=== PATIENT | female | born 1945 | race Caucasian/White ===

== ENCOUNTER → 2024-07-11 15:50 | Outpatient (REF) | payer OTHER, SELFPAY | LOC: HWRAD 15:50 | PROVIDERS: ATTENDING PHYSICIAN Nurse Practitioner Family; FAMILY PHYSICIAN Physician Assistant Medical | DX: R06.00 Dyspnea, unspecified (principal) | CPT/HCPCS: 71046 ==

== ENCOUNTER → 2024-07-23 08:32 | Outpatient (REF) | payer OTHER, SELFPAY ==
[2024-07-23 10:34] LABS: Blood Urea Nitrogen 21 mg/dl (7-17)
== END ==
LOC: HWLAB 08:32
PROVIDERS: ATTENDING PHYSICIAN Nurse Practitioner Family; FAMILY PHYSICIAN Physician Assistant Medical
DX: R93.89 Abnormal findings on diagnostic imaging of other specified body structures (principal); R91.8 Other nonspecific abnormal finding of lung field
CPT/HCPCS: 36415; 82565; 84520

== ENCOUNTER → 2024-07-24 07:56 | Outpatient (REF) | payer OTHER, SELFPAY | LOC: HWRAD 07:56 | PROVIDERS: ATTENDING PHYSICIAN Nurse Practitioner Family; FAMILY PHYSICIAN Physician Assistant Medical | DX: R93.89 Abnormal findings on diagnostic imaging of other specified body structures (principal); R91.8 Other nonspecific abnormal finding of lung field | CPT/HCPCS: 71260; Q9967 ==

== ENCOUNTER 2024-12-05 19:48 | Inpatient (IN) | payer OTHER, SELFPAY ==
[2024-12-05 15:31] VITALS: BMI 19.2
[2024-12-05 15:50] VITALS: BP 121/56
--- NOTE | 2024-12-05 15:54 | ED.MUSCINJ ---
HPI-Injury
<Nima Ervin PA-C - Last Filed: 12/05/24 15:55>
General
Chief Complaint: Fall
Time Seen by Provider: 12/05/24 16:38
<Joseph Driver DO - Last Filed: 12/05/24 18:07>
General
Source: patient
Exam Limitations: none
History of Present Illness-Injury
Initial Injury comments:
See MDM
ED Provider Triage
<Nima Ervin PA-C - Last Filed: 12/05/24 15:55>
-
Patient seen by provider in Triage?: Seen in Triage
79-year-old female presents from home after a fall. She states she was feeling weak she tried to stand up and fell. Does not recall hitting her head. She is not anticoagulated. She has a history of COPD and lung cancer. Visiting nurses advised
she come in here. No known injury from the fall.
Patient with vague complaints of weakness at triage but vital signs are stable will check labs, EKG CT of head and chest x-ray as she is complaining of some shortness of breath.
Patient seen by healthcare provider at triage but warrants further assessment
Past History
<Nima Ervin PA-C - Last Filed: 12/05/24 15:55>
Past History
ED Past Medical History: HTN, Hypercholesterolemia and Other (emphysema, Ulcers)
ED Past Surgical History: Appendectomy and Cholecystectomy
Social History
Tobacco: Smoker
Alcohol: Daily ([place] one glass)
Personal:
Living: with family
Phy Exam
<Joseph Driver, - Last Filed: 12/05/24 18:07>
Physical Exam
Physical Exam:
See MDM
Injury Course
<Nima Ervin PA-C - Last Filed: 12/05/24 15:55>
Orders/Labs/Results
Orders:
Orders
12/05/24 15:53
Electrocardiogram (*1) Urgent
Reason for Study: Fatigue / Weakness
CT Head W/o Iv Contrast Urgent
Comment:
Reason For Exam: fall
EKG- Treatment ONCE
CR Chest - 2 Views Urgent
Comment:
Reason For Exam: sob
12/05/24 16:00
Complete Blood Count/With Diff Urgent
Comprehensive Metabolic Panel Urgent
Troponin I Urgent
12/05/24 16:45
Case Management Consult ONCE
Case Management Consult: VN/Home Care
0.9% Sodium Chloride 1000 ml [Nss] 1,000 ml IV BOLUS
12/05/24 16:51
Morphine Sulfate 4 mg IV NOW STA
Abnormal Lab Results
12/05/24
16:00
WBC 12.9 H 10^3/uL
(4.8-10.8)
RBC 4.14 L 10^6/uL
(4.20-5.40)
Hgb 9.9 L g/dL
(12.0-16.0)
Hct 31.0 L %
(37.0-47.0)
MCV 74.9 L fL
(81.0-99.0)
MCH 23.9 L pg
(27.0-31.0)
MCHC 31.9 L g/dL
(33.0-37.0)
RDW 18.8 H %
(11.5-14.5)
Abs Immat Gran (auto) 0.1 H 10^3/uL
(0-0.05)
Absolute Neuts (auto) 12.3 H 10^3/uL
(1.4-6.5)
Absolute Lymphs (auto) 0.2 L 10^3/uL
(1.2-3.4)
Neutrophils % 95.6 H %
(42.2-75.2)
Lymphocytes % 1.6 L %
(20.5-51.1)
Sodium 133 L mmol/L
(135-145)
BUN 32 H mg/dl
(7-17)
Creatinine 1.1 H mg/dL
(0.6-1.0)
Glucose 212 H mg/dl
(70-99)
AST 40 H U/L
(14-36)
12/05/24 16:00
12/05/24 16:00
<Joseph Driver, DO - Last Filed: 12/05/24 18:07>
Orders/Labs/Results
Orders:
Orders
12/05/24 15:53
Electrocardiogram (*1) Urgent
Reason for Study: Fatigue / Weakness
CT Head W/o Iv Contrast Urgent
Comment:
Reason For Exam: fall
EKG- Treatment ONCE
CR Chest - 2 Views Urgent
Comment:
Reason For Exam: sob
12/05/24 16:00
Complete Blood Count/With Diff Urgent
Comprehensive Metabolic Panel Urgent
Troponin I Urgent
12/05/24 16:45
Case Management Consult ONCE
Case Management Consult: VN/Home Care
0.9% Sodium Chloride 1000 ml [Nss] 1,000 ml IV BOLUS
12/05/24 16:51
Morphine Sulfate 4 mg IV NOW STA
Abnormal Lab Results
12/05/24
16:00
WBC 12.9 H 10^3/uL
(4.8-10.8)
RBC 4.14 L 10^6/uL
(4.20-5.40)
Hgb 9.9 L g/dL
(12.0-16.0)
Hct 31.0 L %
(37.0-47.0)
MCV 74.9 L fL
(81.0-99.0)
MCH 23.9 L pg
(27.0-31.0)
MCHC 31.9 L g/dL
(33.0-37.0)
RDW 18.8 H %
(11.5-14.5)
Abs Immat Gran (auto) 0.1 H 10^3/uL
(0-0.05)
Absolute Neuts (auto) 12.3 H 10^3/uL
(1.4-6.5)
Absolute Lymphs (auto) 0.2 L 10^3/uL
(1.2-3.4)
Neutrophils % 95.6 H %
(42.2-75.2)
Lymphocytes % 1.6 L %
(20.5-51.1)
Sodium 133 L mmol/L
(135-145)
BUN 32 H mg/dl
(7-17)
Creatinine 1.1 H mg/dL
(0.6-1.0)
Glucose 212 H mg/dl
(70-99)
AST 40 H U/L
(14-36)
12/05/24 16:00
12/05/24 16:00
<Joseph Driver, DO - Last Filed: 12/05/24 18:07>
MDM/Problems Addressed
Differential Diagnosis Includes:
HPI and MDM Narrative:
79-year-old female presenting for evaluation of a fall. Patient is on home hospice. The hospitalist document imaging manager is at bedside. She believes that the patient does not have the appropriate care at home. Patient does acknowledge this as well. They
revoked hospice to come to the emergency department for evaluation. Blood work was obtained and the CT head was obtained given her fall. Patient found to have multiple areas of metastasis in her brain with 1 area showing concern for petechial
hemorrhage. She is on aspirin. We discussed cessation of aspirin. Will provide pain medicine for her back pain. Patient complains of shortness of breath given her ongoing lung cancer. She is not currently on treatment due to her hospice.
Her living situation is her and her grandson but her grandson has a full-time job so there is much of the day where she is alone.
Will obtain case management consult facilitate visiting nursing
Physical exam
General: Weak, frail, cachectic. Lying in bed comfortably
HEENT: protecting airway. Mildly dry mucous membranes
Neck: appears supple
CV: No evidence of cyanosis. Regular rate and rhythm
Resp: No accessory muscle use. Lungs clear
Abd: Non-distended
Back: No midline spinal tenderness
Extremities: No deformities. No hip tenderness
Neuro: alert
Psych: Normal affect
Skin: Intact
Problems Addressed including Acute and Chronic Conditions affecting care:
1. Intracranial mass and hemorrhage
Acuity: acute
Prognosis: unstable
Details: Appears to be metastasis from her lung cancer. She is hospice and not a surgical candidate. Patient does acknowledge this
2. Generalized weakness
Acuity: acute
Prognosis: stable
Details: Likely in the setting of her ongoing hospice, deconditioning and end-stage cancer. She wants to remain on hospice but wants to do this at home. It is currently unsafe. Will have case management help facilitate visiting nursing
Updates
Hospice at bedside spoke to patient and will admit for inpatient hospice
Differential Diagnosis (but not limited to): Deconditioning, intracranial hemorrhage, dehydration
Testing considered: Urinalysis
Drug therapy (if applicable): OTC meds, please see d/c instruction regarding Rx drugs
Amount and/or Complexity of Data Reviewed
Clinical info obtained from: Patient
External data reviewed: N/A
Labs I independently reviewed (but not limited to): Mild anemia
Radiology: The CT scan was personally and independently reviewed. In addition, official CT report reviewed.
Pulse Ox: not hypoxic
EKG independently reviewed: N/A
Anhydrous Ammonia Production Supervisor: N/A
Critical Care: N/A
Risk of Complication:
Social Determinants of health: Good social support
Discussed with other providers: Hospice, hospitalist
Escalation of Care includes Admit/Obs: Given her terminal disease, will admit for inpatient hospice
Occasional wrong word or 'sound a like' substitutions may have occurred due to the inherent limitations of voice recognition software. Read the chart carefully and recognize, using context, where substitutions have occurred.
<Joseph Driver DO - Last Filed: 12/05/24 18:07>
*Critical Care Note
Total Time (30-74mins, 75-104mins- exclusive of procedures): Not Applicable
ED Attending Note
<Nima Ervin PA-C - Last Filed: 12/05/24 15:55>
-
Portions of this chart may have been created with voice recognition software.� Occasional wrong word or��sound alike� substitutions may have occurred due to the inherent limitations of voice recognition software.
Discharge Plan
Departure
Patient Disposition: Admit
Date of Disposition: 12/05/24
Time of Disposition: 18:07
Admit to: Med/Surg
Presentation/result/management discussed w/ accepting MD/DO: Hospitalist
Discharge Problem:
Metastatic cancer to brain
Prescriptions:
No Action
alprazolam 0.5 MG tablet
0.5 mg PO BIDPRN PRN (Reason: anxiety)
Patient Comments:
12/10/16 Usually only takes at night
metoprolol tartrate 50 MG tablet
50 mg PO BID
albuterol sulfate 1 PUFF HFA aerosol inhaler
1 puff inhalation R Q6HPRN PRN (Reason: sob)
aspirin 81 MG tablet,delayed release (DR/EC)
81 mg PO HS
acetaminophen [Tylenol Arthritis Pain] 650 MG tablet extended release
650 mg PO PRN PRN (Reason: pain)
albuterol sulfate 2.5 MG/3 ML solution for nebulization
2.5 mg inhalation TID
azithromycin 250 MG tablet
250 mg PO DAILY
amlodipine 10 MG tablet
10 mg PO DAILY
ipratropium bromide 0.5 MG/2.5 ML solution
2.5 ml inhalation TID
budesonide-formoterol [Symbicort] 1 PUFF HFA aerosol inhaler
2 puff inhalation R BID
roflumilast [Daliresp] 500 MCG tablet
500 mg PO DAILY
nystatin 5 ML suspension
5 ml PO QID 13 Days Qty: 1 1RF
prednisone 10 MG tablet
10 mg PO .TAPER Qty: 30 0RF
Rx Instructions:
Take 40mg daily x3days, 30mg daily x3days,
20mg daily x3days, 10mg daily x3days.
Referrals:
Cara Myaa PA-C [Family Provider] -
Interventions
Interventions:
*Risk Screen - Suicide Last Done: 12/05/24 15:50
*General Assessment Last Done: 12/05/24 15:50
*Neglect/Abuse Screening Last Done: 12/05/24 15:50
Discharge Date and Time
Print Language: ESTONIAN
[2024-12-05 16:10] LABS: % Basophils 0.2 % (0-2); % Eosinophils 0.1 % (0-6); % Immature Granulocytes 0.4 % (0-0.5); % Lymphocytes 1.6 % (20.5-51.1); % Monocytes 2.1 % (1.7-9.3); % Neutrophils 95.6 % (42.2-75.2); Absolute Immature Granulocytes 0.1 10^3/uL (0-0.05); Absolute Lymphocytes 0.2 10^3/uL (1.2-3.4); Absolute Monocytes 0.3 10^3/uL (0.1-0.6); Absolute Neutrophils 12.3 10^3/uL (1.4-6.5); Hemoglobin 9.9 g/dL (12.0-16.0); Mean Corp Hgb Conc. 31.9 g/dL (33.0-37.0); Mean Corpuscular Hgb 23.9 pg (27.0-31.0); Mean Corpuscular Volume 74.9 fL (81.0-99.0); Mean Platelet Volume 9.4 fL (7.4-10.4); Nucleated Red Blood Cells % 0 %; Platelet Count 264 10^3/uL (130-400); Red Blood Cell Count 4.14 10^6/uL (4.20-5.40); Red Cell Dist. Width 18.8 % (11.5-14.5); White Blood Cell Count 12.9 10^3/uL (4.8-10.8)
[2024-12-05 16:24] LABS: ALT (SGPT) 25 U/L (0-35); AST (SGOT) 40 U/L (14-36); Alkaline Phosphatase 63 U/L (38-126); Blood Urea Nitrogen 32 mg/dl (7-17); Carbon Dioxide 26 mmol/L (22-30); Chloride 98 mmol/L (98-107); Glucose 212 mg/dl (70-99); Potassium 5.1 mmol/L (3.5-5.1); Sodium 133 mmol/L (135-145); Total Bilirubin 0.6 mg/dl (0.2-1.3); Total Protein 6.3 g/dl (6.3-8.2); eGFR 50.48
[2024-12-05 16:36] LABS: Troponin I < 0.012 ng/ml
[2024-12-05 16:39] VITALS: BP 142/66
[2024-12-05 17:00] VITALS: BP 140/57
--- NOTE | 2024-12-05 17:10 | HOSPNOTE ---
Met patient in the ED, long discussion about goals of care, patient wishes to remain on hospice. Provided emotional support.
[2024-12-05] MEDS: MORPHINE SULFATE 4 MG IV (17:12)
[2024-12-05] MEDS: NSS 1000 IV (17:13)
--- NOTE | 2024-12-05 18:09 | HPS.HSE ---
Addendum entered and electronically signed by Melyssa Cedeño DO 12/05/24 22:37:
The patient is seen and examined, and I have discussed the patient with Leatha. I have reviewed her history and physical, and agree with her assessment and plan of care as per below. The patient has suspected lung cancer with metastatic disease,
with multiple falls at home. She has been on home hospice with [facility] since before [place]. She continued to smoke cigarettes, and is not on home oxygen for this reason. She has been hypoxic, with increased anxiety.
VSS, AF at this time
Pt is sitting upright in bed, cachectic
Lungs diffuse wheeze, decreased BS
Abd soft, nt/nd
Neuro no focal deficits
#End-stage COPD
#Suspected metastatic lung cancer
#Hypertension
- continue amlodipine and metoprolol
#Anxiety
#Nicotine dependence
#Hyperlipidemia
Code Status: DNR
Agree with plan of care as per below, continue hospice/ comfort measures, CM consultation to discuss discharge to a facility w hospice care
Original Note:
Family Physician
-
Family Physician: Cara Maya
Chief Complaint
-
fall
History of Present Illness
Patient is a 79-year-old female with past medical history significant for suspected metastatic lung cancer, COPD, hypertension, hyperlipidemia and anxiety who presented to [facility] for evaluation s/p fall at home. Patient reports multiple falls
at home recently 2 today and one where she hit her head. She has been on home hospice with [facility] since before she states. Able to connect with hospice nurse who confirms patient was had chest x-ray and chest CT in
June 2024, with suspected lung cancer and patient declined further workup and elected hospice services on 10/02/2024 with primary diagnosis of end-stage COPD. Nurse reports patient was not on home O2 r/t her continued current smoking. At visits
she would be hypoxic with increased RR to the 40s. At assessment patient SpO2 mid 90s with 2L via NC, presents anxious and non-cooperative in assessment.
Medical History
Past Medical History
Past Medical History: Reports Other
Additional Past Medical History:
metastatic lung cancer
COPD
hypertension
hyperlipidemia
anxiety
Past Surgical History: Reports Other
Additional Past Surgical History:
appendectomy
cholecystectomy
Social History
Tobacco: Smoker (0.5-1 pack per day 'for a very long time' per patient )
Alcohol: Daily (2 drinks of amaretto daily )
Drug: None
Living: With Family
Family History
Family History: Not pertinent
Allergies / Home Medications
Allergies reflects when Allergies were last updated in [employer].
Home Medications with original date entered in [employer]
Allergy/Medication List:
Allergies
Allergy/AdvReac Type Severity Reaction Status Date / Time
amoxicillin Allergy Itching Verified 12/05/24 15:56
bee venom protein (honey bee) Allergy Unknown Verified 12/05/24 15:56
lisinopril Allergy Rash Verified 12/05/24 15:56
Home Medications
acetaminophen 650 mg tablet,extended release (Tylenol Arthritis Pain) 650 mg PO Q8H 12/10/16
albuterol sulfate 90 mcg/actuation aerosol inhaler 2 puff inhalation R Q4HPRN PRN dyspnea 12/10/16
alprazolam 0.5 mg tablet 0.5 mg PO Q8H 12/10/16
aspirin 81 mg tablet,delayed release 81 mg PO DAILY Blood clot prevention/tx 12/10/16
metoprolol tartrate 50 mg tablet 50 mg PO BID Blood pressure 12/10/16
albuterol sulfate 2.5 mg/3 mL (0.083 %) solution for nebulization 2.5 mg inhalation R TID COPD 09/21/21
amlodipine 10 mg tablet 10 mg PO DAILY Blood pressure 09/21/21
azithromycin 250 mg tablet 250 mg PO DAILY COPD 09/21/21
ipratropium bromide 0.02 % solution for inhalation 2.5 ml inhalation R TID COPD 09/21/21
acetaminophen 650 mg rectal suppository 650 mg LA Q6HPRN PRN mild pain/fever >100.4, NPO 12/05/24
bisacodyl 10 mg rectal suppository 10 mg LA DAILYPRN PRN constipation 12/05/24
cyclobenzaprine 10 mg tablet 10 mg PO TIDPRN PRN muscle spasms 12/05/24
fluticasone 250 mcg-salmeterol 50 mcg/dose blistr powdr for inhalation (Advair Diskus) 1 inh inhalation R BID 12/05/24
haloperidol lactate 2 mg/mL oral concentrate 1 mg PO Q6HPRN PRN agitation/hallucinations 12/05/24
hyoscyamine sulfate 0.125 mg sublingual tablet 0.125 mg PO Q4HPRN PRN excessive secretions 12/05/24
lorazepam 0.5 mg tablet 0.5 mg PO Q4HPRN PRN breakthrough anxiety 12/05/24
morphine concentrate 100 mg/5 mL (20 mg/mL) oral solution 5 mg PO Q1HPRN PRN breakthrough dyspnea/pain 12/05/24
morphine concentrate 100 mg/5 mL (20 mg/mL) oral solution 5 mg PO Q6H 12/05/24
prednisone 20 mg tablet 20 mg PO DAILY 12/05/24
prochlorperazine maleate 10 mg tablet 10 mg PO Q6HPRN PRN nausea/vomiting 12/05/24
sennosides 8.6 mg-docusate sodium 50 mg tablet (Senna Plus) 2 tab-cap PO Q48H 12/05/24
sertraline 50 mg tablet 50 mg PO QPM 12/05/24
tramadol 50 mg tablet 50 mg PO Q8H 12/05/24
Review of Systems
-
History Source: Patient
A 12 point ROS was completed and negative except as noted: Yes
Constitutional: Reports No Symptoms
EENT: Reports No Symptoms
Respiratory: Reports Cough and Trouble Breathing (shortness of breath)
Cardiac: Reports No Symptoms
Abdomen/GI: Reports No Symptoms
: Reports No Symptoms
Musculoskeletal: Reports No Symptoms
Skin: Reports Other (bilateral upper extremities bruising )
Neurological: Reports Weakness (repeat falls)
Endocrine: Reports No Symptoms
Hematologic/Lymphatic: Reports No Symptoms
Psych: Reports No Symptoms
Physical Exam
Vital Signs
Vital Signs
Temp Pulse Resp BP Pulse Ox
98.3 F 76 16 121/56 92
12/05/24 15:50 12/05/24 15:50 12/05/24 15:50 12/05/24 15:50 12/05/24 15:50
Physical Exam
General: Well Developed, Respiratory Distress, Poor Appetite, Appears Chronically Ill and Cachectic
HEENT: NormoCephalic, Atraumatic, PERRLA, [place] Conjunctivae, Nose Appears Normal, Ears Appear Normal and Neck Nontender
Respiratory: Clear and Decreased Breath Sounds
Cardiac: S1/S2 and Regular Rhythm; No Murmur, Rub or Gallop
Breast: Deferred by me
GI: Soft, Non Tender, Non Distended and Normal Bowel Sounds; No Organomegaly
Rectal: Deferred by Provider
Genito-urinary: Deferred by me
Musculoskeletal: No Clubbing, No Cyanosis and No Edema
Skin: Warm, IV/Catheter Site and Other (bilateral upper extremities and torso with significant bruising, patient states she just touches something and gets a bruise); No Rash
Neuro: Awake, Alert and Nonfocal/grossly intact
Psych: Anxious (significant anxiety observed and expressed with assessment )
Laboratory Results
-
12/05/24 16:00
12/05/24 16:00
Laboratory Results
Total Bilirubin 0.6 mg/dl (0.2-1.3) 12/05/24 16:00
AST 40 U/L (14-36) H 12/05/24 16:00
ALT 25 U/L (0-35) 12/05/24 16:00
Alkaline Phosphatase 63 U/L (38-126) 12/05/24 16:00
Troponin I < 0.012 ng/ml 12/05/24 16:00
Data Reviewed
-
Diagnostic Radiology: Report Reviewed by me (CXR: Enlarging 13.5 cm left lower lobe pulmonary mass is high level suspicion for pulmonary malignancy)
CT Scan: Report Reviewed by me (Head: There are multiple high density intracranial masses most consistent with intracranial metastasis. A 2 cm right posterior parietal parafalcine lesion contains small volume petechial hemorrhage)
Lab Data: Labs Reviewed by me (WBC 12.9, hgb 99, hct 31.0, neut 95.6, na 133, BUN 32, Creat 1.1, )
Impression/Plan
-
IMPRESSION/PLAN:
#end-stage COPD
patient current everyday smoke with documented hypoxia and tachypnea with home hospice visits
on 2L NC in ED to maintain SpO2 >93%
- admit to in-patient hospice services
- consult case management for hospice
- oxygen PRN to maintain SpO2 >93%
- continue advair, albuterol neb, azithromycin, ipratropium bromide neb, morphine ATC, and prednisone
- add PRN IV morphine
#suspected metastatic lung cancer
CXR (07/11/2024): New left basilar pulmonary mass concerning for lung cancer. Recommend a follow-up chest CT with intravenous contrast.
CXR (12/05/2024): Enlarging 13.5 cm left lower lobe pulmonary mass is high level suspicion for pulmonary malignancy
Chest CT (07/24/2024): Large left lower lobe mass measuring up to 10.4 cm in maximum dimension consistent with primary lung malignancy. Internal areas of necrosis are present. Surrounding airspace opacities and
interlobular septal thickening may represent postobstructive pneumonia, however contiguous and/or lymphatic spread is not excluded.
Left hilar lymphadenopathy consistent with shae metastases. No other metastatic disease in the chest.
Interval enlargement of an infrarenal abdominal aortic aneurysm, only partially visualized on the current examination. Aneurysm sac now measures up to 5.0 cm in AP dimension compared to 4.3 cm
previously in 2021. However, the aneurysm is only partially visualized on the current examination. Dedicated abdominal imaging is recommended for further evaluation.
Chronic/incidental findings as detailed in the body of the report.
Head CT (12/05/2024): There are multiple high density intracranial masses most consistent with intracranial metastasis.
A 2 cm right posterior parietal parafalcine lesion contains small volume petechial hemorrhage
- comfort measures
#hypertension
- continue amlodipine and metoprolol
#anxiety
- continue alprazolam
- add IV lorazepam PRN
#Nicotine dependence
patient continues to smoke 0.5-1 pack per day
- start nicotine Patch
#hyperlipidemia
Code Status: DNR
DVT Prophylaxis: n/a
[2024-12-05 18:12] VITALS: BP 141/52
[2024-12-05] MEDS: ATIVAN 1 MG IV (19:04)
[2024-12-05] MEDS: FLUSH (NSS) 1 FLUSH IV (19:05)
[2024-12-05] MEDS: NSS (PRESERVATIVE FREE) 0.5 ML IV (19:05)
--- NOTE | 2024-12-05 19:17 | HOSPNOTE ---
Patient will be transitioned to inpatient hospice. Provided home medication list to RETREAD SUPERVISOR. Notified admissions of patient being admitted to inpatient hospice. Patients grandson Isidro called into hospice and update provided to him regarding patients
condition and status. I will call him tomorrow with room number and update on patients condition. Isidro was going to update his brother Jerson who was at work but lived with the patient. Emotional support provided. Hospice will see patient daily.
--- NOTE | 2024-12-05 19:24 | PHANOTE ---
[employer] tech(12/05/24)-Patient is on hospice, got medication list from Dr. Driver, who previously contacted hospice for medication list.
[2024-12-05] MEDS: NICODERM TRANSDERMAL 21 MG TRANSDERM (20:20)
[2024-12-05 22:30] VITALS: BP 135/68; BMI 18.5
[2024-12-05] MEDS: MORPHINE SULFATE 2 MG IV (22:39)
[2024-12-05] MEDS: LOPRESSOR 50 MG PO (22:40)
[2024-12-05] MEDS: XANAX 0.5 MG PO (23:16)
[2024-12-06] MEDS: ATROVENT NEBULES INH (00:54)
[2024-12-06] MEDS: ADVAIR HFA 115/21 MCG INHALER INH (00:54)
[2024-12-06] MEDS: VENTOLIN NEBULES INH (00:54)
[2024-12-06] MEDS: MORPHINE SULFATE 2 MG IV ×5 (03:13→21:28)
[2024-12-06] MEDS: VENTOLIN NEBULES 2.5 MG INH ×3 (07:28→20:03)
[2024-12-06] MEDS: ATROVENT NEBULES 0.5 MG INH ×3 (07:29→20:03)
[2024-12-06] MEDS: ADVAIR HFA 115/21 MCG INHALER 2 PUFF INH ×2 (07:29→20:03)
[2024-12-06 08:13] VITALS: BP 121/47
[2024-12-06] MEDS: ZITHROMAX 250 MG PO (09:20)
[2024-12-06] MEDS: ASPIR LOW (ENTERIC COATED) 81 MG PO (09:20)
[2024-12-06] MEDS: DELTASONE 20 MG PO (09:21)
[2024-12-06] MEDS: LOPRESSOR 50 MG PO ×2 (09:21→19:55)
[2024-12-06] MEDS: NORVASC 10 MG PO (09:21)
[2024-12-06] MEDS: XANAX 0.5 MG PO ×3 (09:21→23:47)
[2024-12-06] MEDS: NICODERM TRANSDERMAL 21 MG TRANSDERM (09:22)
--- NOTE | 2024-12-06 09:57 | HOSPNOTE ---
This RN called [facility] are on aging [phone]. Spoke with: Cassandra Ramirez. Provided patient�s name and , home address, contact information for grandsons and grandson's , and details of ongoing concerns and events of 12/05/24, falls,
concerns for patient�s safety, lack of appropriate care and financial concerns. Follow Up: Cassandra will send report to protective service department and they will investigate.
--- NOTE | 2024-12-06 11:06 | W.PN.HOSP.TC ---
Today's Communication/Plan
-
f/w hospice nurse recommendations
c/w morphine, Xanax
Assessment / Plan
Assessment / Plan
Physical Exam
General: Appears Chronically Ill and Cachectic
HEENT: Normocephalic, Atraumatic, PERRLA, [place] Conjunctivae, Nose Appears Normal, Ears Appear Normal and Neck Nontender
Respiratory: Crackles and Decreased Breath Sounds
Cardiac: S1/S2
GI: Soft, Non Tender, Non Distended
Rectal: No bleeding
Genito-urinary: No hematuria
Skin: Warm, IV/Catheter Site and Other (bilateral upper extremities and torso with significant bruising, patient states she just touches something and gets a bruise); No Rash
Neuro: Awake, Alert and followed simple commands
Psych: less anxious.
#End stage chronic hypoxic respiratory failure with severe COPD/ continued tobacco use
patient current everyday smoke with documented hypoxia and tachypnea with home hospice visits
on 2L NC in ED to maintain SpO2 >93%
- admit to in-patient hospice services
- consult case management for hospice
- oxygen PRN to maintain SpO2 >93%
- continue Advair, albuterol neb, azithromycin, ipratropium bromide neb, morphine ATC, and prednisone
- add PRN IV morphine
#Stage IV metastatic lung cancer
CXR (07/11/2024): New left basilar pulmonary mass concerning for lung cancer. Recommend a follow-up chest CT with intravenous contrast.
CXR (12/05/2024): Enlarging 13.5 cm left lower lobe pulmonary mass is high level suspicion for pulmonary malignancy
Chest CT (07/24/2024): Large left lower lobe mass measuring up to 10.4 cm in maximum dimension consistent with primary lung malignancy. Internal areas of necrosis are present. Surrounding airspace opacities and
interlobular septal thickening may represent postobstructive pneumonia, however contiguous and/or lymphatic spread is not excluded.
Left hilar lymphadenopathy consistent with shae metastases. No other metastatic disease in the chest.
Interval enlargement of an infrarenal abdominal aortic aneurysm, only partially visualized on the current examination. Aneurysm sac now measures up to 5.0 cm in AP dimension compared to 4.3 cm
previously in 2021. However, the aneurysm is only partially visualized on the current examination. Dedicated abdominal imaging is recommended for further evaluation.
Chronic/incidental findings as detailed in the body of the report.
Head CT (12/05/2024): There are multiple high density intracranial masses most consistent with intracranial metastasis.
A 2 cm right posterior parietal parafalcine lesion contains small volume petechial hemorrhage
Patient had decided to pursue palliative care/hospice. She was made aware of lung mass and highly suspicious for lung cancer and could be treatable but she made her decision to pursue comfort care and declined biopsy or further treatments. She is
currently on home hospice care
#Essential hypertension
- continue amlodipine and metoprolol
#anxiety
- continue alprazolam
- add IV lorazepam PRN
#Nicotine dependence
patient continues to smoke 0.5-1 pack per day
- start nicotine Patch
#hyperlipidemia
# Leukocytosis, reactive
# Anemia, no history of bleeding. Suspect related to ongoing chronic illness
# Hyponatremia
# Acute kidney injury,
No flank pain
Padilla catheter for comfort care/ retention
Code Status: DNR
DVT Prophylaxis: n/a
Total time spent to see the patient, examine the patient, review data and lab results, discuss treatment plan with patient, hospice nurse, nursing staff around 55 minutes
Anticipated Discharge: 24 - 48 hours
Subjective/Interval History
-
Date of Service: December 06, 2024
She reports feeling better with morphine and Xanax
She denies chest pain
Objective Data
-
Vital Signs:
Vital Signs
Temp Pulse Resp BP Pulse Ox
97.9 F 76 16 121/47 96
12/06/24 08:13 12/06/24 09:21 12/06/24 08:13 12/06/24 09:21 12/06/24 08:13
I&O
12/05/24 12/06/24 12/07/24
06:59 06:59 06:59
Intake Total 280 / 280
Balance 280 / 280
--- NOTE | 2024-12-06 11:25 | PTCARENOTE ---
Patient resting in bed this AM, with productive cough. Was able to take her medications orally, ate all of her breakfast. Patient asking for a cigarette - educated that they are incompatible with the healthcare environment - and that she has a
nicotine patch on. Able to make her needs known, turns well and repositions self in bed as desired. Otherwise appears comfortable.
--- NOTE | 2024-12-06 12:24 | HOSPNOTE ---
Spoke with patient and discussed pain and shortness of breath. At this time the patient denies pain and shortness of breath and has only had the scheduled medications and no PRN doses given. The patient would like to go home, however it is not safe
for the patient to go home at this time due to increased falls, no caregivers, unsafe environment. We have a call into the [facility] to help assist with financials and possible placement. We have also called [facility] to open a file on
unsafe living conditions. Will continue to see patient daily. We are asking that the patient stay until Tuesday in order for us to put a plan in place. We are trying to work with the [facility] to get [address] so the patient can go home
still with hospice care.
--- NOTE | 2024-12-06 13:04 | HOSPNOTE ---
GRANDSON CHELLY CALLED IN AND WE WERE ABLE TO PROVIDE AN UPDATE TO HIM REGARDING PATIENT. REVIEWED THAT PATIENT IS PRESENTLY IN THE HOSPITAL BUT IS STATING THAT SHE WANTS TO GO HOME AND IS NOT WANTING MEDICATIONS PRN FOR SHORTNESS OF BREATH OR PAIN.
REVIEWED THAT THE HOSPITAL CAN NOT KEEP PATIENT PASSED THE WEEKEND. CHELLY REPORTS HE WILL SPEAK TO HIS BROTHER TO SEE WHAT THEY CAN DO TO BRING PATIENT BACK HOME WITH 24H CAREGIVERS. HE STATES HE WILL CALL US BACK BY TOMORROW AFTERNOON. MORE
INFORMATION TO FOLLOW.
[2024-12-06] MEDS: ZOLOFT 50 MG PO (18:03)
[2024-12-06 19:54] VITALS: BP 116/55
[2024-12-07] MEDS: MORPHINE SULFATE 2 MG IV ×4 (03:00→21:06)
[2024-12-07] MEDS: ProAIR HFA INHALER 2 PUFF INH (03:20)
[2024-12-07] MEDS: VENTOLIN NEBULES 2.5 MG INH ×3 (07:22→19:36)
[2024-12-07] MEDS: ATROVENT NEBULES 0.5 MG INH ×3 (07:22→19:36)
[2024-12-07] MEDS: ADVAIR HFA 115/21 MCG INHALER 2 PUFF INH ×2 (07:22→19:36)
[2024-12-07 07:55] VITALS: BP 152/62
[2024-12-07 08:00] VITALS: BP 152/62
[2024-12-07] MEDS: ZITHROMAX 250 MG PO (08:20)
[2024-12-07] MEDS: NICODERM TRANSDERMAL 21 MG TRANSDERM (08:20)
[2024-12-07] MEDS: LOPRESSOR 50 MG PO ×2 (08:20→20:17)
[2024-12-07] MEDS: XANAX 0.5 MG PO ×3 (08:20→23:47)
[2024-12-07] MEDS: DELTASONE 20 MG PO (08:20)
[2024-12-07] MEDS: ASPIR LOW (ENTERIC COATED) 81 MG PO (08:21)
[2024-12-07] MEDS: NORVASC 10 MG PO (08:27)
--- NOTE | 2024-12-07 10:33 | W.PN.HOSP.TC ---
Today's Communication/Plan
-
Not ready for discharge
c/w steroid
morphine & Xanax
Assessment / Plan
Assessment / Plan
Physical Exam
General: Appears Chronically Ill and Cachectic
HEENT: Normocephalic, Atraumatic, PERRLA, [place] Conjunctivae, Nose Appears Normal, Ears Appear Normal and Neck Nontender
Respiratory: Crackles and Decreased Breath Sounds
Cardiac: S1/S2
GI: Soft, Non Tender, Non Distended
Rectal: No bleeding
Genito-urinary: No hematuria
Skin: Warm, IV/Catheter Site and Other (bilateral upper extremities and torso with significant bruising, patient states she just touches something and gets a bruise); No Rash
Neuro: Awake, Alert and followed simple commands
Psych: less anxious.
#End stage chronic hypoxic respiratory failure with severe COPD/ continued tobacco use
patient current everyday smoke with documented hypoxia and tachypnea with home hospice visits
on 2L NC in ED to maintain SpO2 >93%
- admit to in-patient hospice services
- consult case management for hospice
- oxygen PRN to maintain SpO2 >93%
- continue Advair, albuterol neb, azithromycin, ipratropium bromide neb, morphine ATC, and prednisone
- add PRN IV morphine
#Stage IV metastatic lung cancer
CXR (07/11/2024): New left basilar pulmonary mass concerning for lung cancer. Recommend a follow-up chest CT with intravenous contrast.
CXR (12/05/2024): Enlarging 13.5 cm left lower lobe pulmonary mass is high level suspicion for pulmonary malignancy
Chest CT (07/24/2024): Large left lower lobe mass measuring up to 10.4 cm in maximum dimension consistent with primary lung malignancy. Internal areas of necrosis are present. Surrounding airspace opacities and
interlobular septal thickening may represent postobstructive pneumonia, however contiguous and/or lymphatic spread is not excluded.
Left hilar lymphadenopathy consistent with shae metastases. No other metastatic disease in the chest.
Interval enlargement of an infrarenal abdominal aortic aneurysm, only partially visualized on the current examination. Aneurysm sac now measures up to 5.0 cm in AP dimension compared to 4.3 cm
previously in 2021. However, the aneurysm is only partially visualized on the current examination. Dedicated abdominal imaging is recommended for further evaluation.
Chronic/incidental findings as detailed in the body of the report.
Head CT (12/05/2024): There are multiple high density intracranial masses most consistent with intracranial metastasis.
A 2 cm right posterior parietal parafalcine lesion contains small volume petechial hemorrhage
Patient had decided to pursue palliative care/hospice. She was made aware of lung mass and highly suspicious for lung cancer and could be treatable but she made her decision to pursue comfort care and declined biopsy or further treatments. She is
currently on home hospice care
#Essential hypertension
- continue amlodipine and metoprolol
#anxiety
- continue alprazolam
- add IV lorazepam PRN
#Nicotine dependence
patient continues to smoke 0.5-1 pack per day
- started nicotine Patch
#hyperlipidemia
# Leukocytosis, reactive
# Anemia, no history of bleeding. Suspect related to ongoing chronic illness
# Hyponatremia
# Acute kidney injury,
No flank pain
Padilla catheter for comfort care/ retention
Code Status: DNR
DVT Prophylaxis: n/a
Total time spent to see the patient, examine the patient, review data and lab results, discuss treatment plan with patient, her grandson, nursing staff around 55 minutes
Anticipated Discharge: > 48 hours
Subjective/Interval History
-
Date of Service: December 07, 2024
less sob
Objective Data
-
Vital Signs:
Vital Signs
Temp Pulse Resp BP Pulse Ox
98.2 F 86 17 152/62 94
12/07/24 08:00 12/07/24 08:00 12/07/24 08:00 12/07/24 08:27 12/07/24 08:00
I&O
12/06/24 12/07/24 12/08/24
06:59 06:59 06:59
Intake Total 280 / 280 940 / 940
Balance 280 / 280 940 / 940
--- NOTE | 2024-12-07 13:15 | CM ---
Patient chart reviewed-patient sleeping
CM consult completed.
Patient was at home on hospice since before [place] for End stage COPD, suspected lung Ca with metastatic disease.
Patient smokes, no home 02
Per hospice note patient was not safe at home d/t increased falls, no caregivers, called in to [facility]
Lives with grandson in an apartment who works.
CM tried calling grandjanet Vora to follow up on 24 hr caregivers
--- NOTE | 2024-12-07 15:08 | HOSPNOTE ---
Patient resting comfortably, required one PRN dose of morphine last evening. The patient will remain here through the weekend and then there will need to be help in place at home for patient, grandson is aware of plan. I encouraged patient to
utilize medications if feeling any pain or shortness of breath. Patient continues to be GIP for pain management requiring IV morphine. Will see patient daily.
[2024-12-07] MEDS: ZOLOFT 50 MG PO (17:35)
[2024-12-07] MEDS: ATIVAN 1 MG IV ×2 (17:52→22:34)
[2024-12-07] MEDS: NSS (PRESERVATIVE FREE) 0.5 ML IV (17:52)
[2024-12-07 23:26] VITALS: BP 131/51
[2024-12-07] MEDS: TYLENOL 650 MG PO (23:47)
[2024-12-08] MEDS: MORPHINE SULFATE 2 MG IV ×4 (04:09→21:31)
[2024-12-08] MEDS: ProAIR HFA INHALER 2 PUFF INH (04:12)
[2024-12-08 07:10] VITALS: BP 126/49
[2024-12-08] MEDS: ATROVENT NEBULES 0.5 MG INH ×3 (07:26→18:16)
[2024-12-08] MEDS: ADVAIR HFA 115/21 MCG INHALER 2 PUFF INH ×2 (07:26→18:16)
[2024-12-08] MEDS: VENTOLIN NEBULES 2.5 MG INH ×3 (07:26→18:17)
[2024-12-08] MEDS: ASPIR LOW (ENTERIC COATED) 81 MG PO (08:07)
[2024-12-08] MEDS: LOPRESSOR 50 MG PO ×2 (08:07→21:31)
[2024-12-08] MEDS: XANAX 0.5 MG PO ×3 (08:07→23:23)
[2024-12-08] MEDS: DELTASONE 20 MG PO (08:07)
[2024-12-08] MEDS: NORVASC 10 MG PO (08:08)
[2024-12-08] MEDS: NICODERM TRANSDERMAL 21 MG TRANSDERM (08:08)
[2024-12-08] MEDS: ZITHROMAX 250 MG PO (08:08)
--- NOTE | 2024-12-08 08:57 | HOSPNOTE ---
SN recieved patient sleeping in bed, patient minimally responsive to SN verbalization and gentle touch. Patient briefly opens eyes to respond to SN with yes or no answers. Patient does not recognize SN during visit. Patient breathing is labored, RR
16 patient pox on O2 97%. Patient has some moaning during movement. Patient abdomen soft, non tender active bowel sounds noted. Emotional support provided. SN coordinated with facility SN, no concerns at this time. Facility SN stated patient was up
through out the night restless. Reinforced to call office with any questions or concerns, expresses understanding. Patient has not required any PRN medicaitons in the last 24hrs. Patient continues with scheduled medications to manage pain and
anxiety. Patient continues to be inpatient appropriate for management of pain and shortness of breath. Discharge planning still continues.
--- NOTE | 2024-12-08 11:10 | W.PN.HOSP.TC ---
Today's Communication/Plan
-
c/w comfort care
f/w hospice nurse recommendations
Assessment / Plan
Assessment / Plan
Physical Exam
General: Appears Chronically Ill and Cachectic
HEENT: Normocephalic, Atraumatic, PERRLA, [place] Conjunctivae, Nose Appears Normal, Ears Appear Normal and Neck Nontender
Respiratory: Crackles and Decreased Breath Sounds
Cardiac: S1/S2
GI: Soft, Non Tender, Non Distended
Rectal: No bleeding
Genito-urinary: No hematuria
Skin: Warm, IV/Catheter Site and Other (bilateral upper extremities and torso with significant bruising, patient states she just touches something and gets a bruise); No Rash
Neuro: Awake, Alert and followed simple commands
Psych: less anxious.
#End stage chronic hypoxic respiratory failure with severe COPD/ continued tobacco use
patient current everyday smoke with documented hypoxia and tachypnea with home hospice visits
on 2L NC in ED to maintain SpO2 >93%
- admit to in-patient hospice services
- consult case management for hospice
- oxygen PRN to maintain SpO2 >93%
- continue Advair, albuterol neb, azithromycin, ipratropium bromide neb, morphine ATC, and prednisone
- add PRN IV morphine
#Stage IV metastatic lung cancer
CXR (07/11/2024): New left basilar pulmonary mass concerning for lung cancer. Recommend a follow-up chest CT with intravenous contrast.
CXR (12/05/2024): Enlarging 13.5 cm left lower lobe pulmonary mass is high level suspicion for pulmonary malignancy
Chest CT (07/24/2024): Large left lower lobe mass measuring up to 10.4 cm in maximum dimension consistent with primary lung malignancy. Internal areas of necrosis are present. Surrounding airspace opacities and
interlobular septal thickening may represent postobstructive pneumonia, however contiguous and/or lymphatic spread is not excluded.
Left hilar lymphadenopathy consistent with shae metastases. No other metastatic disease in the chest.
Interval enlargement of an infrarenal abdominal aortic aneurysm, only partially visualized on the current examination. Aneurysm sac now measures up to 5.0 cm in AP dimension compared to 4.3 cm
previously in 2021. However, the aneurysm is only partially visualized on the current examination. Dedicated abdominal imaging is recommended for further evaluation.
Chronic/incidental findings as detailed in the body of the report.
Head CT (12/05/2024): There are multiple high density intracranial masses most consistent with intracranial metastasis.
A 2 cm right posterior parietal parafalcine lesion contains small volume petechial hemorrhage
Patient had decided to pursue palliative care/hospice. She was made aware of lung mass and highly suspicious for lung cancer and could be treatable but she made her decision to pursue comfort care and declined biopsy or further treatments. She is
currently on home hospice care
#Essential hypertension
- continue amlodipine and metoprolol
#anxiety
- continue alprazolam
- add IV lorazepam PRN
#Nicotine dependence
patient continues to smoke 0.5-1 pack per day
- started nicotine Patch
#hyperlipidemia
# Leukocytosis, reactive
# Anemia, no history of bleeding. Suspect related to ongoing chronic illness
# Hyponatremia
# Acute kidney injury,
No flank pain
Padilla catheter for comfort care/ retention
Code Status: DNR
DVT Prophylaxis: n/a
Total time spent to see the patient, examine the patient, review data and lab results, discuss treatment plan with patient, nursing staff around 45 minutes
Anticipated Discharge: 24 - 48 hours
Subjective/Interval History
-
Date of Service: December 08, 2024
No chest pain
on Nebulizer
Objective Data
-
Vital Signs:
Vital Signs
Temp Pulse Resp BP Pulse Ox
98.1 F 76 18 126/49 96
12/08/24 07:10 12/08/24 08:07 12/08/24 07:29 12/08/24 08:07 12/08/24 07:29
I&O
12/07/24 12/08/24 12/09/24
06:59 06:59 06:59
Intake Total 940 / 940 840 / 840
Balance 940 / 940 840 / 840
[2024-12-08] MEDS: ZOLOFT PO (17:35)
[2024-12-08 23:12] VITALS: BP 104/53
[2024-12-09] MEDS: MORPHINE SULFATE 2 MG IV ×6 (04:28→23:52)
[2024-12-09 07:10] VITALS: BP 110/41
[2024-12-09] MEDS: ADVAIR HFA 115/21 MCG INHALER 2 PUFF INH ×2 (07:37→19:41)
[2024-12-09] MEDS: ATROVENT NEBULES 0.5 MG INH ×3 (07:37→19:41)
[2024-12-09] MEDS: VENTOLIN NEBULES 2.5 MG INH ×3 (07:37→19:41)
[2024-12-09] MEDS: NICODERM TRANSDERMAL 21 MG TRANSDERM (08:49)
[2024-12-09] MEDS: ASPIR LOW (ENTERIC COATED) 81 MG PO (08:49)
[2024-12-09] MEDS: NORVASC 10 MG PO (08:49)
[2024-12-09] MEDS: LOPRESSOR 50 MG PO ×2 (08:49→19:58)
[2024-12-09] MEDS: DELTASONE 20 MG PO (08:49)
[2024-12-09] MEDS: XANAX 0.5 MG PO ×2 (08:49→19:58)
[2024-12-09] MEDS: ZITHROMAX 250 MG PO (08:49)
--- NOTE | 2024-12-09 09:28 | HOSPNOTE ---
Patient assessed laying in bed, intermittently falls asleep throughout this assessment. Denies pain and no nonverbal signs of anxiety noted. Nonverbal signs of dyspnea noted and patient reports feeling dyspneic. Scheduled morphine dose to be
administered pako. Patient eating during this visit, consumed 25% of breakfast. Informal conference with facility RN Yomaira, she reports that the grandson has been calling and asking what the plan for the patient is. Discussed with Massiel Costa
structures engineer weekend coordinator, plan is if patient still wants to go home family must have 24/7 paid caregivers in the home before the patient can return. This SN attempted to call the grandson - spoke with Isidro regarding plan for home. He stated
that he and his have 'put out feelers' to different places in the area and to see how much it would cost, and whether they could even do it. He stated that he would have an answer by tuesday or tuesday. Reinforced patient will need 24/[address] if she wishes to return home. Patient remains GIP at this time for dyspnea management, discharge planning continues
--- NOTE | 2024-12-09 10:19 | W.PN.HOSP.TC ---
Today's Communication/Plan
-
Taper prednisone
dc planning per pillowcase maker and hospice
Assessment / Plan
Assessment / Plan
Physical Exam
General: Appears Chronically Ill and Cachectic
HEENT: Normocephalic, Atraumatic, PERRLA, [place] Conjunctivae, Nose Appears Normal, Ears Appear Normal and Neck Nontender
Respiratory: Crackles and Decreased Breath Sounds
Cardiac: S1/S2
GI: Soft, Non Tender, Non Distended
Rectal: No bleeding
Genito-urinary: No hematuria
Skin: Warm, IV/Catheter Site and Other (bilateral upper extremities and torso with significant bruising, patient states she just touches something and gets a bruise); No Rash
Neuro: Awake, Alert and followed simple commands
Psych: less anxious.
#End stage chronic hypoxic respiratory failure with severe COPD/ continued tobacco use
patient current everyday smoke with documented hypoxia and tachypnea with home hospice visits
on 2L NC in ED to maintain SpO2 >93%
- admit to in-patient hospice services
- consult case management for hospice
- oxygen PRN to maintain SpO2 >93%
- continue Advair, albuterol neb, azithromycin, ipratropium bromide neb, morphine ATC, and prednisone
- add PRN IV morphine
#Stage IV metastatic lung cancer
CXR (07/11/2024): New left basilar pulmonary mass concerning for lung cancer. Recommend a follow-up chest CT with intravenous contrast.
CXR (12/05/2024): Enlarging 13.5 cm left lower lobe pulmonary mass is high level suspicion for pulmonary malignancy
Chest CT (07/24/2024): Large left lower lobe mass measuring up to 10.4 cm in maximum dimension consistent with primary lung malignancy. Internal areas of necrosis are present. Surrounding airspace opacities and
interlobular septal thickening may represent postobstructive pneumonia, however contiguous and/or lymphatic spread is not excluded.
Left hilar lymphadenopathy consistent with shae metastases. No other metastatic disease in the chest.
Interval enlargement of an infrarenal abdominal aortic aneurysm, only partially visualized on the current examination. Aneurysm sac now measures up to 5.0 cm in AP dimension compared to 4.3 cm
previously in 2021. However, the aneurysm is only partially visualized on the current examination. Dedicated abdominal imaging is recommended for further evaluation.
Chronic/incidental findings as detailed in the body of the report.
Head CT (12/05/2024): There are multiple high density intracranial masses most consistent with intracranial metastasis.
A 2 cm right posterior parietal parafalcine lesion contains small volume petechial hemorrhage
Patient had decided to pursue palliative care/hospice. She was made aware of lung mass and highly suspicious for lung cancer and could be treatable but she made her decision to pursue comfort care and declined biopsy or further treatments. She is
currently on home hospice care
#Essential hypertension
- continue amlodipine and metoprolol
#anxiety
- continue alprazolam
- add IV lorazepam PRN
#Nicotine dependence
patient continues to smoke 0.5-1 pack per day
- started nicotine Patch
#hyperlipidemia
# Leukocytosis, reactive
# Anemia, no history of bleeding. Suspect related to ongoing chronic illness
# Hyponatremia
# Acute kidney injury,
No flank pain
Padilla catheter for comfort care/ retention
Code Status: DNR
DVT Prophylaxis: n/a
Total time spent to see the patient, examine the patient, review data and lab results, discuss treatment plan with patient, nursing staff around 45 minutes
Anticipated Discharge: Within 24 hours
Subjective/Interval History
-
Date of Service: December 09, 2024
No chest pain
No sob
No fevers
Objective Data
-
Vital Signs:
Vital Signs
Temp Pulse Resp BP Pulse Ox
98.7 F 72 18 110/41 98
12/09/24 07:10 12/09/24 07:10 12/09/24 07:10 12/09/24 07:10 12/09/24 07:10
I&O
12/08/24 12/09/24 12/10/24
06:59 06:59 06:59
Intake Total 840 / 840 420 / 420
Balance 840 / 840 420 / 420
[2024-12-09] MEDS: ATIVAN 1 MG IV (15:12)
--- NOTE | 2024-12-09 15:43 | CHAP ---
Visited Georgette at 1:45pm. She was sleeping lightly - responded to hearing her name. 'Better,' she said, when asked how she was feeling. Emotional and spiritual support provided.
[2024-12-09] MEDS: ZOLOFT 50 MG PO (17:25)
--- NOTE | 2024-12-09 18:46 | PTCARENOTE ---
pt continues on hospice care , Morphine scheduled given and a PRN dose for Dyspnea, pt SOB with slight movements when attempting out of bed, poor appetite, more thirsty then hungry. Karley visited Tuesday, would like update from Hospice about
plan to return home. Steve farwarded to Hospice nurse.
[2024-12-09 19:56] VITALS: BP 132/59
[2024-12-10] MEDS: ATIVAN 1 MG IV ×2 (03:49→12:19)
[2024-12-10] MEDS: NSS (PRESERVATIVE FREE) 0.5 ML IV ×2 (03:49→12:19)
[2024-12-10] MEDS: MORPHINE SULFATE 2 MG IV ×5 (05:12→23:43)
[2024-12-10] MEDS: ProAIR HFA INHALER 2 PUFF INH ×2 (05:29→17:23)
[2024-12-10 07:15] VITALS: BP 134/66
[2024-12-10] MEDS: VENTOLIN NEBULES 2.5 MG INH ×3 (07:30→20:01)
[2024-12-10] MEDS: ATROVENT NEBULES 0.5 MG INH ×3 (07:30→20:01)
[2024-12-10] MEDS: ADVAIR HFA 115/21 MCG INHALER 2 PUFF INH ×2 (07:30→20:01)
[2024-12-10] MEDS: XANAX 0.5 MG PO ×2 (07:53→20:22)
[2024-12-10] MEDS: NICODERM TRANSDERMAL 21 MG TRANSDERM (07:53)
[2024-12-10] MEDS: ASPIR LOW (ENTERIC COATED) 81 MG PO (07:53)
[2024-12-10] MEDS: ZITHROMAX 250 MG PO (07:54)
[2024-12-10] MEDS: DELTASONE 10 MG PO (07:54)
[2024-12-10] MEDS: LOPRESSOR 50 MG PO ×2 (08:00→20:23)
[2024-12-10] MEDS: NORVASC 10 MG PO (08:00)
--- NOTE | 2024-12-10 10:03 | W.PN.HOSP.TC ---
Today's Communication/Plan
-
discharge planning per case aide
Assessment / Plan
Assessment / Plan
Physical Exam
General: Appears Chronically Ill and Cachectic
HEENT: Normocephalic, Atraumatic, PERRLA, [place] Conjunctivae, Nose Appears Normal, Ears Appear Normal and Neck Nontender
Respiratory: Crackles and Decreased Breath Sounds
Cardiac: S1/S2
GI: Soft, Non Tender, Non Distended
Rectal: No bleeding
Genito-urinary: No hematuria
Skin: Warm, IV/Catheter Site and Other (bilateral upper extremities and torso with significant bruising, patient states she just touches something and gets a bruise); No Rash
Neuro: Awake, Alert and followed simple commands
Psych: less anxious.
#End stage chronic hypoxic respiratory failure with severe COPD/ continued tobacco use
patient current everyday smoke with documented hypoxia and tachypnea with home hospice visits
on 2L NC in ED to maintain SpO2 >93%
- admit to in-patient hospice services
- consult case management for hospice
- oxygen PRN to maintain SpO2 >93%
- continue Advair, albuterol neb, azithromycin, ipratropium bromide neb, morphine ATC, and prednisone
- add PRN IV morphine
#Stage IV metastatic lung cancer
CXR (07/11/2024): New left basilar pulmonary mass concerning for lung cancer. Recommend a follow-up chest CT with intravenous contrast.
CXR (12/05/2024): Enlarging 13.5 cm left lower lobe pulmonary mass is high level suspicion for pulmonary malignancy
Chest CT (07/24/2024): Large left lower lobe mass measuring up to 10.4 cm in maximum dimension consistent with primary lung malignancy. Internal areas of necrosis are present. Surrounding airspace opacities and
interlobular septal thickening may represent postobstructive pneumonia, however contiguous and/or lymphatic spread is not excluded.
Left hilar lymphadenopathy consistent with shae metastases. No other metastatic disease in the chest.
Interval enlargement of an infrarenal abdominal aortic aneurysm, only partially visualized on the current examination. Aneurysm sac now measures up to 5.0 cm in AP dimension compared to 4.3 cm
previously in 2021. However, the aneurysm is only partially visualized on the current examination. Dedicated abdominal imaging is recommended for further evaluation.
Chronic/incidental findings as detailed in the body of the report.
Head CT (12/05/2024): There are multiple high density intracranial masses most consistent with intracranial metastasis.
A 2 cm right posterior parietal parafalcine lesion contains small volume petechial hemorrhage
Patient had decided to pursue palliative care/hospice. She was made aware of lung mass and highly suspicious for lung cancer and could be treatable but she made her decision to pursue comfort care and declined biopsy or further treatments. She is
currently on home hospice care
#Essential hypertension
- continue amlodipine and metoprolol
#anxiety
- continue alprazolam
- add IV lorazepam PRN
#Nicotine dependence
patient continues to smoke 0.5-1 pack per day
- started nicotine Patch
#hyperlipidemia
# Leukocytosis, reactive
# Anemia, no history of bleeding. Suspect related to ongoing chronic illness
# Hyponatremia
# Acute kidney injury,
No flank pain
Padilla catheter for comfort care/ retention
Code Status: DNR
DVT Prophylaxis: n/a
Total time spent to see the patient, examine the patient, review data and lab results, discuss treatment plan with patient, nursing staff around 45 minutes
Anticipated Discharge: Within 24 hours
Subjective/Interval History
-
Date of Service: December 10, 2024
she feels better
No chest pain
Objective Data
-
Vital Signs:
Vital Signs
Temp Pulse Resp BP Pulse Ox
98.6 F 84 16 148/70 97
12/10/24 07:15 12/10/24 08:00 12/10/24 07:33 12/10/24 08:00 12/10/24 10:01
I&O
12/09/24 12/10/24 12/11/24
06:59 06:59 06:59
Intake Total 420 / 420 240 / 240
Balance 420 / 420 240 / 240
--- NOTE | 2024-12-10 12:25 | PTCARENOTE ---
pt jumping out of bed, agitated and restless. pt washed by this nurse and chelsey from hospice. pt [id number]. [place] and adamately wants to leave. pt given prn ativan and morphine. see MAR for proper documentation.
--- NOTE | 2024-12-10 13:44 | HOSPNOTE ---
Patient was washed and repositioned. Patient appears uncomfortable even though patient denies feeling short of breath. Patient did agree to a PRN dose of morphine. Patient was pulling at the IV and does seen agitated. We were able to reposition and
will medicate. Oxygen was removed by patient and she is refusing to wear, told nurse to medicate for shortness of breath since the oxygen is causing more agitation. Patient will be seen daily, a call was placed to [facility] who is helping the
grandson get caregivers in place. Will continue to follow.
[2024-12-10] MEDS: ZOLOFT 50 MG PO (20:22)
[2024-12-10 20:25] VITALS: BP 123/47
[2024-12-11] MEDS: ATIVAN 1 MG IV (00:11)
--- NOTE | 2024-12-11 01:29 | PTCARENOTE ---
Patient continues to be restless and agitated at times, she is easily redirected in the bed with out difficulty, medications given as ordered, as well as a dose of prn Ativan to help relax/sleep. appetite remains poor, patient anxious to get back
home. O2 placed back on patient who at this time is keeping it on.
[2024-12-11] MEDS: ADVAIR HFA 115/21 MCG INHALER 2 PUFF INH ×2 (07:34→19:39)
[2024-12-11] MEDS: VENTOLIN NEBULES 2.5 MG INH ×3 (07:34→19:38)
[2024-12-11] MEDS: ATROVENT NEBULES 0.5 MG INH ×3 (07:34→19:38)
[2024-12-11 07:36] VITALS: BP 124/53
[2024-12-11] MEDS: NORVASC 10 MG PO (08:25)
[2024-12-11] MEDS: NICODERM TRANSDERMAL 21 MG TRANSDERM (08:25)
[2024-12-11] MEDS: XANAX 0.5 MG PO ×2 (08:25→21:08)
[2024-12-11] MEDS: ASPIR LOW (ENTERIC COATED) 81 MG PO (08:25)
[2024-12-11] MEDS: ZITHROMAX 250 MG PO (08:25)
[2024-12-11] MEDS: DELTASONE 10 MG PO (08:25)
[2024-12-11] MEDS: LOPRESSOR 50 MG PO ×2 (08:26→21:08)
[2024-12-11] MEDS: MORPHINE SULFATE 2 MG IV ×3 (08:26→21:09)
--- NOTE | 2024-12-11 10:40 | W.PN.HOSP.TC ---
Today's Communication/Plan
-
c/w hospice care
Assessment / Plan
Assessment / Plan
Physical Exam
General: Appears Chronically Ill and Cachectic
HEENT: Normocephalic, Atraumatic, PERRLA, [place] Conjunctivae, Nose Appears Normal, Ears Appear Normal and Neck Nontender
Respiratory: Crackles and Decreased Breath Sounds
Cardiac: S1/S2
GI: Soft, Non Tender, Non Distended
Rectal: No bleeding
Genito-urinary: No hematuria
Skin: Warm, IV/Catheter Site and Other (bilateral upper extremities and torso with significant bruising, patient states she just touches something and gets a bruise); No Rash
Neuro: Awake, Alert and followed simple commands
Psych: less anxious.
#End stage chronic hypoxic respiratory failure with severe COPD/ continued tobacco use
patient current everyday smoke with documented hypoxia and tachypnea with home hospice visits
on 2L NC in ED to maintain SpO2 >93%
- admit to in-patient hospice services
- consult case management for hospice
- oxygen PRN to maintain SpO2 >93%
- continue Advair, albuterol neb, azithromycin, ipratropium bromide neb, morphine ATC, and prednisone
- add PRN IV morphine
#Stage IV metastatic lung cancer
Patient had decided to pursue palliative care/hospice. She was made aware of lung mass and highly suspicious for lung cancer and could be treatable but she made her decision to pursue comfort care and declined biopsy or further treatments. She is
currently on home hospice care
#Essential hypertension
- continue amlodipine and metoprolol
#anxiety
- continue alprazolam
- add IV lorazepam PRN
#Nicotine dependence
patient continues to smoke 0.5-1 pack per day
- started nicotine Patch
#hyperlipidemia
# Leukocytosis, reactive
# Anemia, no history of bleeding. Suspect related to ongoing chronic illness
# Hyponatremia
# Acute kidney injury,
No flank pain
Padilla catheter for comfort care/ retention
Code Status: DNR
DVT Prophylaxis: n/a
Total time spent to see the patient, examine the patient, review data and lab results, discuss treatment plan with patient, nursing staff around 45 minutes
Anticipated Discharge: 24 - 48 hours
Subjective/Interval History
-
Date of Service: December 11, 2024
Objective Data
-
Vital Signs:
Vital Signs
Temp Pulse Resp BP Pulse Ox
98.0 F 78 18 124/53 95
12/11/24 07:36 12/11/24 07:37 12/11/24 07:37 12/11/24 08:26 12/11/24 07:37
I&O
12/10/24 12/11/24 12/12/24
06:59 06:59 06:59
Intake Total 240 / 240 180 / 180
Balance 240 / 240 180 / 180
--- NOTE | 2024-12-11 14:12 | HOSPNOTE ---
Patient was sleeping during my visit but appeared comfortable. Patient removed oxygen which is fine and patient appears comfortable. Patient does get extremely agitated and does need to be medicated. Patient does have scheduled morphine but does
require PRN doses. The grandson is supposed to get back to us tomorrow and is setting up caregivers for the patient to be able to go home. [facility] is involved and care needs to be in place. Patient will be seen daily.
--- NOTE | 2024-12-11 16:26 | CM ---
Patient remains inpatient hospice.
Grandson attempting to arrange for caregivers in the home.
[facility] contacted by hospice.
PLAN: to be determined based on grandson's ability to obtain caregivers in the home.
[2024-12-11] MEDS: ZOLOFT 50 MG PO (18:04)
--- NOTE | 2024-12-11 18:11 | PTCARENOTE ---
pt comfortable most of this shift. woke up for this nurse at 1655. pt x1 assist to commode for large bm. this nurse wrote large list of foods that patient does like to eat. pt remains on bed alarm.
[2024-12-11 23:14] VITALS: BP 142/59
[2024-12-12] MEDS: MORPHINE SULFATE 2 MG IV ×4 (00:52→23:56)
[2024-12-12 07:15] VITALS: BP 130/57
[2024-12-12] MEDS: ATROVENT NEBULES 0.5 MG INH ×3 (07:50→20:08)
[2024-12-12] MEDS: ADVAIR HFA 115/21 MCG INHALER 2 PUFF INH ×2 (07:50→20:08)
[2024-12-12] MEDS: VENTOLIN NEBULES 2.5 MG INH ×3 (07:50→20:09)
[2024-12-12] MEDS: ZITHROMAX 250 MG PO (09:11)
[2024-12-12] MEDS: XANAX 0.5 MG PO ×2 (09:11→20:53)
[2024-12-12] MEDS: ASPIR LOW (ENTERIC COATED) 81 MG PO (09:11)
[2024-12-12] MEDS: DELTASONE 10 MG PO (09:11)
[2024-12-12] MEDS: LOPRESSOR 50 MG PO ×2 (09:11→20:53)
[2024-12-12] MEDS: NORVASC 10 MG PO (09:12)
[2024-12-12] MEDS: NICODERM TRANSDERMAL 21 MG TRANSDERM (09:13)
--- NOTE | 2024-12-12 10:55 | W.PN.HOSP.TC ---
Today's Communication/Plan
-
c/w comfort care
Assessment / Plan
Assessment / Plan
Physical Exam
General: Appears Chronically Ill and Cachectic
HEENT: Normocephalic, Atraumatic, PERRLA, [place] Conjunctivae, Nose Appears Normal, Ears Appear Normal and Neck Nontender
Respiratory: Crackles and Decreased Breath Sounds
Cardiac: S1/S2
GI: Soft, Non Tender, Non Distended
Rectal: No bleeding
Genito-urinary: No hematuria
Skin: Warm, IV/Catheter Site and Other (bilateral upper extremities and torso with significant bruising, patient states she just touches something and gets a bruise); No Rash
Neuro: Awake, Alert and followed simple commands
Psych: less anxious.
#End stage chronic hypoxic respiratory failure with severe COPD/ continued tobacco use
patient current everyday smoke with documented hypoxia and tachypnea with home hospice visits
on 2L NC in ED to maintain SpO2 >93%
c/w comfort care measures.
- consulted case management/ hospice
Oxygen for comfort
- continue Advair, albuterol neb, azithromycin, ipratropium bromide neb, morphine ATC,
Finished prednisone
- added PRN IV morphine
#Stage IV metastatic lung cancer
Patient had decided to pursue palliative care/hospice. She was made aware of lung mass and highly suspicious for lung cancer and could be treatable but she made her decision to pursue comfort care and declined biopsy or further treatments. She is
currently on home hospice care
#Essential hypertension
- continue amlodipine and metoprolol
#anxiety
- continue alprazolam but decreased frequency
- added IV lorazepam PRN agitation.
#Nicotine dependence
patient continues to smoke 0.5-1 pack per day
- started nicotine Patch
#hyperlipidemia
# Leukocytosis, reactive
# Anemia, no history of bleeding. Suspect related to ongoing chronic illness
# Hyponatremia
# Acute kidney injury,
No flank pain
Padilla catheter for comfort care/ retention
Code Status: DNR
DVT Prophylaxis: n/a
Total time spent to see the patient, examine the patient, review data and lab results, discuss treatment plan with patient, nursing staff around 45 minutes
Anticipated Discharge: > 48 hours
Subjective/Interval History
-
Date of Service: December 12, 2024
No chest pain
No sob
No abd pain
Objective Data
-
Vital Signs:
Vital Signs
Temp Pulse Resp BP Pulse Ox
98.5 F 71 14 130/57 93
12/12/24 07:15 12/12/24 09:12 12/12/24 07:54 12/12/24 09:12 12/12/24 10:00
I&O
12/11/24 12/12/24 12/13/24
06:59 06:59 06:59
Intake Total 180 / 180 560 / 560
Balance 180 / 180 560 / 560
--- NOTE | 2024-12-12 11:52 | HOSPNOTE ---
We have reached out to kalyan Felix to get patient home, we have reached out to [facility] to help assist with caregivers. Patient will be seen daily by hospice and continue to manage pain, shortness of breath and anxiety.
--- NOTE | 2024-12-12 14:10 | HOSPNOTE ---
Discharge planning continues. Called [facility] Ferrara. This RN called Mack Stover to discuss safe discharge planning. This RN called [facility] and spoke with Alison in admissions [phone]. Alison states that they have a bed available and explained
admission process. Updated Hospice team and discussed discharge with liabrii Giraldo. Hospice team to discuss [facility] vs. hiring paid home caregivers with patient and grandson(s)
--- NOTE | 2024-12-12 16:36 | HOSPNOTE ---
Spoke with grandson Isidro. He states that he is unsure about the discharge plan. Discussed options of facility placement vs paid caregivers in the home. no paid caregivers have been put in place. He states that he is talking to his brother Jerson about
caregivers and talking to Jerson about if Jerson can take FMLA. He is unsure about facility placement and states he needs to talk with his brother. Isidro offered very little information. Hospice team updated.
[2024-12-12] MEDS: ZOLOFT 50 MG PO (18:03)
[2024-12-12] MEDS: DESENEX/MITRAZOL/ZEASORB 1 APPLIC TOPICAL (20:52)
[2024-12-12 23:36] VITALS: BP 116/47
[2024-12-13] MEDS: ZOFRAN 4 MG IV (05:04)
[2024-12-13 07:10] VITALS: BP 122/52
[2024-12-13] MEDS: VENTOLIN NEBULES 2.5 MG INH ×3 (07:21→19:53)
[2024-12-13] MEDS: ATROVENT NEBULES 0.5 MG INH ×3 (07:21→19:52)
[2024-12-13] MEDS: ADVAIR HFA 115/21 MCG INHALER 2 PUFF INH (07:21)
[2024-12-13] MEDS: MORPHINE SULFATE 2 MG IV ×5 (08:35→20:23)
[2024-12-13] MEDS: NORVASC 10 MG PO (08:35)
[2024-12-13] MEDS: ZITHROMAX 250 MG PO (08:36)
[2024-12-13] MEDS: ASPIR LOW (ENTERIC COATED) 81 MG PO (08:36)
[2024-12-13] MEDS: XANAX 0.5 MG PO ×2 (08:36→20:18)
[2024-12-13] MEDS: LOPRESSOR 50 MG PO ×2 (08:36→20:18)
[2024-12-13] MEDS: NICODERM TRANSDERMAL 21 MG TRANSDERM (08:37)
[2024-12-13] MEDS: DESENEX/MITRAZOL/ZEASORB 1 APPLIC TOPICAL ×2 (08:40→20:19)
--- NOTE | 2024-12-13 09:04 | HOSPNOTE ---
Patient was AAOx3 during my visit. Oxygen in place via NC. Patient calm but does get extremely agitated at times. Patient continues to require scheduled morphine with PRN doses. Patient will be seen daily by Hospice. Patient verbalizes understanding
that she will require more care and states that she is agreeable to discharge to [facility]. [facility] and Hospice team notified. THis RN will call [facility] admissions to discuss next steps. Discharge planning continues.
--- NOTE | 2024-12-13 10:35 | W.PN.HOSP.TC ---
Today's Communication/Plan
-
CW hospice care
Ongoing dispo efforts
Assessment / Plan
Assessment / Plan
#End stage chronic hypoxic respiratory failure with severe COPD/ continued tobacco use
patient current everyday smoke with documented hypoxia and tachypnea with home hospice visits
on 2L NC in ED to maintain SpO2 >93%
c/w comfort care measures.
- consulted case management/ hospice
Oxygen for comfort
- continue Advair, albuterol neb, azithromycin, ipratropium bromide neb, morphine ATC,
Finished prednisone
- added PRN IV morphine
#Stage IV metastatic lung cancer
Patient had decided to pursue palliative care/hospice. She was made aware of lung mass and highly suspicious for lung cancer and could be treatable but she made her decision to pursue comfort care and declined biopsy or further treatments. She is
currently on home hospice care
#Essential hypertension
- continue amlodipine and metoprolol
#anxiety
- continue alprazolam but decreased frequency
- added IV lorazepam PRN agitation.
#Nicotine dependence
patient continues to smoke 0.5-1 pack per day
- started nicotine Patch
#hyperlipidemia
# Leukocytosis, reactive
# Anemia, no history of bleeding. Suspect related to ongoing chronic illness
# Hyponatremia
# Acute kidney injury,
No flank pain
Padilla catheter for comfort care/ retention
Code Status: DNR
DVT Prophylaxis: n/a
Dispo based on grandson ability to obtain caregivers in the home
Continue with inpatient hospice
Anticipated Discharge: Within 24 hours
Subjective/Interval History
-
Date of Service: December 13, 2024
She is alert and oriented to place.
She complains of shortness of breath while resting. She is on oxygen. The no acute respiratory distress noted.
No chest pains.
Objective Data
-
Vital Signs:
Vital Signs
Temp Pulse Resp BP Pulse Ox
98.9 F 72 15 122/52 95
12/13/24 07:10 12/13/24 08:36 12/13/24 07:23 12/13/24 08:36 12/13/24 09:56
I&O
12/12/24 12/13/24 12/14/24
06:59 06:59 06:59
Intake Total 560 / 560 600 / 600
Balance 560 / 560 600 / 600
Review of Systems
-
Constitutional: Denies Fever
EENT: Denies Sore Throat
Abdomen/GI: Denies Abdominal Pain, Nausea or Vomiting
Neuro: Denies Dizzy
Physical Exam
-
General: No Apparent Distress
HEENT: Moist Mucous Membranes
Respiratory: Rhonchi (Few bilaterally) and Non Labored Respirations; Negative Accessory Resp Muscle Use
Cardiac: Regular Rhythm and S1/S2
Neuro: AO x 3
--- NOTE | 2024-12-13 11:31 | HOSPNOTE ---
harvest worker fruit checked in on patient after being informed by hospice PCM Namita that [facility] stated that they have a bed available and that patient was agreeable to go. Upon arrival to patient's room, patient was not wearing her nasal
canula properly as both prongs were not in nostrils which was corrected. Patient was asked who would be able to provide financial information for application for [facility] and patient mentioned maybe her sister but then stated 'I don't know'.
Sister had voiced to hospice at one point that she does not want any involvement or to be contacted by hospice. Update given to hospice care team.
--- NOTE | 2024-12-13 14:48 | HOSPNOTE ---
pan tank worker spoke with Alison in Admissions at [facility] and provided update on situation and Alison voiced that they have a bed available still and provided contact information for Malathi, the Computer Systems Security Analyst, to discuss situation
regarding limited information on finances. field worker spoke with Malathi and informed her that patient has very limited to no support and that patient and family has not been able to provide financial information at this time. Malathi stated that a
Medicaid questionare and release of information would need to be completed and signed with patient in order for patient to be able to transfer to [facility]. field worker has not received documentation via email at this time. Malathi stated that they
do not have a rep that can come from the facility to assist patient with the paperwork requested. Malathi also stated that patient could provide permission to her bank verbally on the phone for banking info to be given to [facility] and to also have
her address changed through the bank to [facility]. field worker called Dena from [facility] [phone] and provided update on situation and what [facility] is requesting. field worker also notified Dena that kalyan Felix was called by social
worker this morning and it went straight to voicetxil with no call back. Dena offered assistance with paperwork if needed and stated she would be willing to come to the hospital if needed to assist. field worker called Hospice [facility] and
provided her with update of above mentioned. Discharge planning continues.
[2024-12-13] MEDS: ZOLOFT 50 MG PO (17:15)
[2024-12-13] MEDS: ADVAIR HFA 115/21 MCG INHALER INH (19:52)
[2024-12-13 23:14] VITALS: BP 124/49
[2024-12-14] MEDS: MORPHINE SULFATE 2 MG IV ×6 (00:57→23:20)
[2024-12-14 07:15] VITALS: BP 140/62
[2024-12-14] MEDS: ATROVENT NEBULES 0.5 MG INH (07:31)
[2024-12-14] MEDS: ADVAIR HFA 115/21 MCG INHALER 2 PUFF INH ×2 (07:31→20:00)
[2024-12-14] MEDS: VENTOLIN NEBULES 2.5 MG INH (07:31)
[2024-12-14] MEDS: ZITHROMAX 250 MG PO (08:13)
[2024-12-14] MEDS: NICODERM TRANSDERMAL 21 MG TRANSDERM (08:13)
[2024-12-14] MEDS: NORVASC PO ×2 (08:13→08:20)
[2024-12-14] MEDS: LOPRESSOR PO ×2 (08:14→08:20)
[2024-12-14] MEDS: ASPIR LOW (ENTERIC COATED) PO ×2 (08:14→08:20)
[2024-12-14] MEDS: XANAX 0.5 MG PO ×2 (08:14→20:06)
[2024-12-14] MEDS: DESENEX/MITRAZOL/ZEASORB 1 APPLIC TOPICAL ×2 (08:14→20:07)
--- NOTE | 2024-12-14 10:39 | HOSPNOTE ---
Hospice [facility] continues to work closely with [facility] and Dena with [facility] to have paperwork and financials completed to see if patient can go to [facility]. Patients grandsons have not been returning hospice phone calls. Hospice will continue to see
the patient daily until placement is in place.
--- NOTE | 2024-12-14 11:34 | PTCARENOTE ---
Pt very lethargic and withdrawn this shift; per hospice entrance attendant this is a change from previous visit. Pt refused breakfast, took xanax and morphine, refused other PO meds.
--- NOTE | 2024-12-14 12:50 | W.PN.HOSP.TC ---
Today's Communication/Plan
-
Continue with hospice measures
Assessment / Plan
Assessment / Plan
#End stage chronic hypoxic respiratory failure with severe COPD/ continued tobacco use
patient current everyday smoke with documented hypoxia and tachypnea with home hospice visits
on 2L NC in ED to maintain SpO2 >93%
c/w comfort care measures.
- consulted case management/ hospice
Oxygen for comfort
- continue Advair, albuterol neb, azithromycin, ipratropium bromide neb, morphine ATC,
Finished prednisone
- added PRN IV morphine
#Stage IV metastatic lung cancer
Patient had decided to pursue palliative care/hospice. She was made aware of lung mass and highly suspicious for lung cancer and could be treatable but she made her decision to pursue comfort care and declined biopsy or further treatments. She is
currently on home hospice care
#Essential hypertension
- continue amlodipine and metoprolol
#anxiety
- continue alprazolam but decreased frequency
- added IV lorazepam PRN agitation.
#Nicotine dependence
patient continues to smoke 0.5-1 pack per day
- on nicotine Patch
Code Status: DNR
DVT Prophylaxis: n/a
Dispo based on grandson ability to obtain caregivers in the home
Continue with inpatient hospice
Anticipated Discharge: > 48 hours
Subjective/Interval History
-
Date of Service: December 14, 2024
Patient had a fever and according to RN patient is withdrawn. Not eating today. Did not take her medications.
Patient is lethargic to me and not forthcoming with conversation. Hospice nursing team at bedside trying to communicate with the patient and get answers regarding her comfort level.
Objective Data
-
Vital Signs:
Vital Signs
Temp Pulse Resp BP Pulse Ox
100.3 F 76 16 140/62 96
12/14/24 07:15 12/14/24 07:35 12/14/24 07:35 12/14/24 07:15 12/14/24 11:32
I&O
12/13/24 12/14/24 12/15/24
06:59 06:59 06:59
Intake Total 600 / 600 540 / 540
Balance 600 / 600 540 / 540
Review of Systems
-
Unable to obtain full review of systems at this time due to: Other (Due to her mentation)
Physical Exam
-
General: No Apparent Distress
Respiratory: Non Labored Respirations; Negative Accessory Resp Muscle Use
Neuro: Awake; Negative Alert
Psych: Calm
--- NOTE | 2024-12-14 13:02 | HOSPNOTE ---
delinquency prevention social worker was informed by hospice SN Inez that patient appears to be transitioning at this time. horticultural worker spoke with Dena from [facility] who was also present in the hospital along with hospice SN Inez about current condition and
checked in on patient who appeared very lethargic and was refusing medication after team expressed patient seemed SOB. Patient could not express the reasoning as to why she was refusing medication. Dena from [facility] agreed that she should stay at the
hospital due to her current condition. horticultural worker spoke with grandsons Jerson and Isidro via phone and informed them that patient appears to be transitioning based on hospice SN assessment this morning and also inquired about arrangements.
Isidro stated that she mentioned about wanting to be cremated and web content & social media manager provided names of a couple of homes with a crematory on site and asked that family notify hospice today about end of life planning. Update of conversation given to
Dena in [facility] and hospice care team.
--- NOTE | 2024-12-14 15:34 | CM ---
Reviewed the chart notes and spoke with director hospice operations. Patient appears to be refusing medication and is becoming lethargic. CM continues to be available to patient/family and is monitoring medical plan for needs at discharge.
Plan: GIP Hospice continues.
--- NOTE | 2024-12-14 15:51 | HOSPNOTE ---
This visit was conducted with Inez Hicks RN and Service Dog Jacobo. This sn went in to see patient, patient appears very lethargic, responds with 1-2 word answers, appears very dyspneic, RR is 24 lung sounds coarse, harsh and labored, mottling
to the bases of the feet. This SN conducted this visit alongside MELANIE Kasper and social services specialist Dena from [facility]. Patient continues to refuse prn administration of morphine but unable to answer why she declines to have it given. Continues on
scheduled comfort medications. No longer eating or drinking as of this am, able to partially take routine medications this AM. Facility RN in agreement that this patient appears to be transitioning. PPS 10% KPS 10%. This SN discussed face to face
with Dr. Knott, Facility RN, telephonic case manager Cortney Olivo, MELANIE Kasper, and [facility] social services specialist Dena, all in agreement and understanding that patient appears to be transitioning and requiring IV medication for symptom management, should remain
GIP. Discussion with hospice team via tigertext reviewing the same thing. All in agreement and understanding. Alongside Morenita Kasper managed to reach the patient's grandsons Jerson and Isidro. Family aware that the patient is transitioning and that
they should come in to see her as soon as possible if they wish to do so. Patient remains GIP for symptom management.
--- NOTE | 2024-12-14 15:57 | CM ---
Patient remains GIP Hospice.
[2024-12-14] MEDS: ZOLOFT 50 MG PO (17:58)
--- NOTE | 2024-12-14 18:05 | PTCARENOTE ---
Pt rang with c/o feeling very short of breath. POX 92 on 2 L, RR 26, increased oxygen to 4L sats 95%, morphine given as ordered for dyspnea
[2024-12-14] MEDS: ATIVAN 1 MG IV ×2 (18:28→22:26)
[2024-12-14] MEDS: NSS (PRESERVATIVE FREE) 0.5 ML IV ×2 (18:28→22:27)
[2024-12-14 19:46] VITALS: BP 133/56
[2024-12-14] MEDS: LOPRESSOR 50 MG PO (20:06)
[2024-12-15] MEDS: MORPHINE SULFATE 2 MG IV ×4 (05:32→20:46)
--- NOTE | 2024-12-15 06:10 | PTCARENOTE ---
Pt medicated with PRN and ramone morphine overnight, also PRN IV ativan given, breathing better, O2 back @ 2L and sating 93-95 %. No c/o SOB.
[2024-12-15 07:10] VITALS: BP 131/48
[2024-12-15] MEDS: ADVAIR HFA 115/21 MCG INHALER 2 PUFF INH (07:29)
[2024-12-15] MEDS: XANAX 0.5 MG PO ×2 (09:08→20:46)
[2024-12-15] MEDS: ZITHROMAX 250 MG PO (09:08)
[2024-12-15] MEDS: NORVASC 10 MG PO (09:08)
[2024-12-15] MEDS: NICODERM TRANSDERMAL 21 MG TRANSDERM (09:08)
[2024-12-15] MEDS: ASPIR LOW (ENTERIC COATED) 81 MG PO (09:08)
[2024-12-15] MEDS: LOPRESSOR 50 MG PO ×2 (09:08→20:46)
[2024-12-15] MEDS: DESENEX/MITRAZOL/ZEASORB 1 APPLIC TOPICAL ×2 (09:24→20:53)
--- NOTE | 2024-12-15 12:37 | W.PN.HOSP.TC ---
Today's Communication/Plan
-
CW hospice level of care
Assessment / Plan
Assessment / Plan
#End stage chronic hypoxic respiratory failure with severe COPD/ continued tobacco use
patient current everyday smoke with documented hypoxia and tachypnea with home hospice visits
on 2L NC in ED to maintain SpO2 >93%
c/w comfort care measures.
- consulted case management/ hospice -following
Oxygen for comfort
- continue Advair, albuterol neb, azithromycin, ipratropium bromide neb, morphine ATC,
Finished prednisone
- added PRN IV morphine
#Stage IV metastatic lung cancer
Patient had decided to pursue palliative care/hospice. She was made aware of lung mass and highly suspicious for lung cancer and could be treatable but she made her decision to pursue comfort care and declined biopsy or further treatments. She is
currently on home hospice care
#Essential hypertension
- continue amlodipine and metoprolol
#anxiety
- continue alprazolam but decreased frequency
- added IV lorazepam PRN agitation.
#Nicotine dependence
patient continues to smoke 0.5-1 pack per day
- on nicotine Patch
Code Status: DNR
DVT Prophylaxis: n/a
cw In patient level of hospice
Anticipated Discharge: 24 - 48 hours
Subjective/Interval History
-
Date of Service: December 15, 2024
On hospice.
Patient a little more alert than yesterday. Not conversive.
Patient was feeling short of breath so got extra dose of morphine this morning. Patient is requiring intermittent parenteral Ativan and morphine for symptom control.
Discussed with RN.
Objective Data
-
Vital Signs:
Vital Signs
Temp Pulse Resp BP Pulse Ox
99.0 F 66 16 131/48 94
12/15/24 07:10 12/15/24 07:33 12/15/24 07:33 12/15/24 07:10 12/15/24 07:33
I&O
12/14/24 12/15/24 12/16/24
06:59 06:59 06:59
Intake Total 540 / 540 360 / 360
Balance 540 / 540 360 / 360
Physical Exam
-
General: Comfortable
Respiratory: Non Labored Respirations; Negative Accessory Resp Muscle Use
Neuro: Awake; Negative Alert
Psych: Calm
--- NOTE | 2024-12-15 12:40 | HOSPNOTE ---
vital signs 98.9, 68 20 131/48. pulse ox 92% on 2 L NC. Patient awake in bed, oriented x 2. Lunch tray in front of her. Able to feed herself an entire banana. Fed several bites of mashed potato and chicken and about 1/2 of pudding cup. Weak cough
with drinking. Denies pain. Admits that morphine helps with her breathing. Averaging 1-3 prn morphine a day. Had 1 prn lorazepam last night at 2226. This SN called Jerson to give him an update. All questions answered. Emotional support provided.
Discharge planning is in progress
--- NOTE | 2024-12-15 14:58 | CHAP ---
Visited Georgette at 11:10am. She was awake, struggling to manage a cup of tea. She nodded affirmatively when asked if she has pain, but did not describe it. She welcomed prayer. Emotional and spiritual support provided, along with assurance of our
on-going availability.
[2024-12-15] MEDS: FLUSH (NSS) 2 FLUSH IV (16:03)
[2024-12-15] MEDS: ZOLOFT 50 MG PO (17:16)
[2024-12-15 19:09] VITALS: BP 110/41
[2024-12-15] MEDS: ADVAIR HFA 115/21 MCG INHALER INH (21:36)
[2024-12-15 23:31] VITALS: BP 125/65
[2024-12-16] MEDS: MORPHINE SULFATE 2 MG IV ×3 (00:02→15:49)
[2024-12-16] MEDS: ADVAIR HFA 115/21 MCG INHALER 2 PUFF INH (07:49)
[2024-12-16] MEDS: ASPIR LOW (ENTERIC COATED) 81 MG PO (08:37)
[2024-12-16] MEDS: NICODERM TRANSDERMAL 21 MG TRANSDERM (08:37)
[2024-12-16] MEDS: ZITHROMAX 250 MG PO (08:37)
[2024-12-16 08:41] VITALS: BP 128/59
[2024-12-16] MEDS: FLUSH (NSS) 2 FLUSH IV ×2 (08:44→15:50)
[2024-12-16] MEDS: LOPRESSOR 50 MG PO ×2 (08:47→20:33)
[2024-12-16] MEDS: NORVASC 10 MG PO (08:48)
[2024-12-16] MEDS: XANAX 0.5 MG PO ×2 (08:48→20:33)
[2024-12-16] MEDS: DESENEX/MITRAZOL/ZEASORB 2 APPLIC TOPICAL (08:50)
--- NOTE | 2024-12-16 09:27 | HOSPNOTE ---
Patient awake and alert, but drifts off to sleep while nurse assists with breakfast. Morphine IV for SOB scheduled every 8 hours and 2 prns given yesterday for a total of 5 doses. Last Ativan 12/14/24. Assisted patient with breakfast coughs with
liquids frequently. Remains GIP appropriate with continued discharge planning at this time. Temp 98.5 HR 70 RR 18 BP 82/57
--- NOTE | 2024-12-16 10:38 | W.PN.HOSP.TC ---
Today's Communication/Plan
-
Continue with hospice care
Assessment / Plan
Assessment / Plan
#End stage chronic hypoxic respiratory failure with severe COPD/ continued tobacco use
patient current everyday smoke with documented hypoxia and tachypnea with home hospice visits
on 2L NC in ED to maintain SpO2 >93%
c/w comfort care measures.
- consulted case management/ hospice -following
Oxygen for comfort
- continue Advair, albuterol neb, azithromycin, ipratropium bromide neb, morphine ATC,
Finished prednisone
- added PRN IV morphine
#Stage IV metastatic lung cancer
Patient had decided to pursue palliative care/hospice. She was made aware of lung mass and highly suspicious for lung cancer and could be treatable but she made her decision to pursue comfort care and declined biopsy or further treatments. She is
currently on home hospice care
#Essential hypertension
- continue amlodipine and metoprolol
#anxiety
- continue alprazolam but decreased frequency
- added IV lorazepam PRN agitation.
#Nicotine dependence
patient continues to smoke 0.5-1 pack per day
- on nicotine Patch
Code Status: DNR
DVT Prophylaxis: n/a
cw In patient level of hospice
DW RN
Anticipated Discharge: 24 - 48 hours
Subjective/Interval History
-
Date of Service: December 16, 2024
Patient was sleeping and she was comfortable without respiratory distress so did not wake her up.
Discussed with RN-she is pretty much the same as yesterday without any new issues. Required a couple of doses of as needed morphine.
Objective Data
-
Vital Signs:
Vital Signs
Temp Pulse Resp BP Pulse Ox
98.5 F 72 16 128/59 94
12/16/24 07:14 12/16/24 08:41 12/16/24 07:51 12/16/24 08:41 12/16/24 08:00
I&O
12/15/24 12/16/24 12/17/24
06:59 06:59 06:59
Intake Total 360 / 360 510 / 510
Balance 360 / 360 510 / 510
Physical Exam
-
General: Comfortable
Respiratory: Non Labored Respirations; Negative Accessory Resp Muscle Use
Psych: Calm
--- NOTE | 2024-12-16 10:39 | W.PN.HOSP.TC ---
Today's Communication/Plan
-
cw hospice level of care
Assessment / Plan
Assessment / Plan
#End stage chronic hypoxic respiratory failure with severe COPD/ continued tobacco use
patient current everyday smoke with documented hypoxia and tachypnea with home hospice visits
on 2L NC in ED to maintain SpO2 >93%
c/w comfort care measures.
- consulted case management/ hospice -following
Oxygen for comfort
- continue Advair, albuterol neb, azithromycin, ipratropium bromide neb, morphine ATC,
Finished prednisone
- added PRN IV morphine
#Stage IV metastatic lung cancer
Patient had decided to pursue palliative care/hospice. She was made aware of lung mass and highly suspicious for lung cancer and could be treatable but she made her decision to pursue comfort care and declined biopsy or further treatments. She is
currently on home hospice care
#Essential hypertension
- continue amlodipine and metoprolol
#anxiety
- continue alprazolam but decreased frequency
- added IV lorazepam PRN agitation.
#Nicotine dependence
patient continues to smoke 0.5-1 pack per day
- on nicotine Patch
Code Status: DNR
DVT Prophylaxis: n/a
cw In patient level of hospice
DW RN
Anticipated Discharge: > 48 hours
Subjective/Interval History
-
Date of Service: December 16, 2024
Objective Data
-
Vital Signs:
Vital Signs
Temp Pulse Resp BP Pulse Ox
98.5 F 72 16 128/59 94
12/16/24 07:14 12/16/24 08:41 12/16/24 07:51 12/16/24 08:41 12/16/24 08:00
I&O
12/15/24 12/16/24 12/17/24
06:59 06:59 06:59
Intake Total 360 / 360 510 / 510
Balance 360 / 360 510 / 510
--- NOTE | 2024-12-16 14:34 | CHAP ---
Georgette was awake, eating some breakfast with help from energy risk management analyst Camilla at 9:20am. Georgette responded to questions. She is an Eagles fan - I offered to help her get the TV channel set for the game. Returned at 2:10 to help with the TV and saw she
had not touched her lunch. Assisted her with opening packages and cutting up food. Assured her of our on-going availability.
[2024-12-16] MEDS: ZOLOFT 50 MG PO (17:21)
[2024-12-16] MEDS: ADVAIR HFA 115/21 MCG INHALER INH (19:42)
[2024-12-16] MEDS: DESENEX/MITRAZOL/ZEASORB 1 APPLIC TOPICAL (20:33)
[2024-12-16 23:12] VITALS: BP 125/59
[2024-12-17] MEDS: MORPHINE SULFATE 2 MG IV ×3 (00:03→15:44)
[2024-12-17 07:05] VITALS: BP 126/51
[2024-12-17] MEDS: ADVAIR HFA 115/21 MCG INHALER 2 PUFF INH ×2 (07:47→19:39)
[2024-12-17] MEDS: ASPIR LOW (ENTERIC COATED) 81 MG PO (08:46)
[2024-12-17] MEDS: XANAX 0.5 MG PO ×2 (08:46→22:04)
[2024-12-17] MEDS: LOPRESSOR 50 MG PO ×2 (08:46→22:04)
[2024-12-17] MEDS: ZITHROMAX 250 MG PO (08:46)
[2024-12-17] MEDS: NORVASC 10 MG PO (08:46)
[2024-12-17] MEDS: NICODERM TRANSDERMAL 21 MG TRANSDERM (08:47)
[2024-12-17] MEDS: DESENEX/MITRAZOL/ZEASORB 1 APPLIC TOPICAL ×2 (08:51→22:10)
--- NOTE | 2024-12-17 12:57 | HOSPNOTE ---
Patient is extremely lethargic increased respirations, I will reach out to [facility] to follow up with placement. IV medications given but no PRN meds needed today. Patient continues to be inpatient hospice appropriate for management of
shortness of pain. Will see patient daily and will continue to work on placement.
[2024-12-17] MEDS: DULCOLAX 10 MG RECTAL (13:51)
--- NOTE | 2024-12-17 14:09 | W.PN.HOSP.TC ---
Today's Communication/Plan
-
cw hospice level of care
Assessment / Plan
Assessment / Plan
#End stage chronic hypoxic respiratory failure with severe COPD/ continued tobacco use
patient current everyday smoke with documented hypoxia and tachypnea with home hospice visits
on 2L NC in ED to maintain SpO2 >93%
c/w comfort care measures.
- consulted case management/ hospice -following
Oxygen for comfort
- continue Advair, albuterol neb, azithromycin, ipratropium bromide neb, morphine ATC,
Finished prednisone
- added PRN IV morphine
#Stage IV metastatic lung cancer
Patient had decided to pursue palliative care/hospice. She was made aware of lung mass and highly suspicious for lung cancer and could be treatable but she made her decision to pursue comfort care and declined biopsy or further treatments. She is
currently on home hospice care
#Essential hypertension
- continue amlodipine and metoprolol
#anxiety
- continue alprazolam but decreased frequency
- added IV lorazepam PRN agitation.
#Nicotine dependence
patient continues to smoke 0.5-1 pack per day
- on nicotine Patch
Code Status: DNR
DVT Prophylaxis: n/a
cw In patient level of hospice
DW RN
CM eval dispo home on hospice with caregivers vs inpatient hospice.
Anticipated Discharge: > 48 hours
Subjective/Interval History
-
Date of Service: December 17, 2024
Patient was sleeping. Did not wake up.
Discussed with RN-she is comfortable. Not requiring much of IV pain medication tonight.
Eats a little.
Objective Data
-
Vital Signs:
Vital Signs
Temp Pulse Resp BP Pulse Ox
98.8 F 75 16 126/51 95
12/17/24 07:05 12/17/24 08:46 12/17/24 07:49 12/17/24 08:46 12/17/24 08:15
I&O
12/16/24 12/17/24 12/18/24
06:59 06:59 06:59
Intake Total 510 / 510 590 / 590
Balance 510 / 510 590 / 590
Physical Exam
-
General: Comfortable
Respiratory: Negative Non Labored Respirations or Accessory Resp Muscle Use
[2024-12-17 15:56] VITALS: BP 126/74
[2024-12-17] MEDS: ZOLOFT 50 MG PO (18:16)
[2024-12-17 19:29] VITALS: BP 134/55
[2024-12-18] MEDS: MORPHINE SULFATE 2 MG IV ×3 (00:42→15:01)
[2024-12-18 07:24] VITALS: BP 131/44
[2024-12-18] MEDS: ADVAIR HFA 115/21 MCG INHALER 2 PUFF INH ×2 (07:56→19:19)
[2024-12-18] MEDS: XANAX 0.5 MG PO ×2 (08:47→19:51)
[2024-12-18] MEDS: NORVASC 10 MG PO (08:47)
[2024-12-18] MEDS: NICODERM TRANSDERMAL 21 MG TRANSDERM (08:47)
[2024-12-18] MEDS: LOPRESSOR 50 MG PO ×2 (08:47→19:51)
[2024-12-18] MEDS: ASPIR LOW (ENTERIC COATED) 81 MG PO (08:47)
[2024-12-18] MEDS: ZITHROMAX 250 MG PO (08:47)
[2024-12-18] MEDS: DESENEX/MITRAZOL/ZEASORB 1 APPLIC TOPICAL ×2 (08:52→22:41)
--- NOTE | 2024-12-18 11:17 | CM ---
Addendum entered by Eleanor Mcelroy 12/18/24 11:34:
referral entered in [facility] for [facility]
Original Note:
Call placed to Zully from [facility] to get update.
She states that SAMANTHA Felix has not returned calls.
[facility] involved.
on hospice service
PLAN: continues on hospice service
--- NOTE | 2024-12-18 12:21 | HOSPNOTE ---
Patient is lethargic however does converse while being spoken too, patient has been switched to all PO meds in hopes to get patient to SNF with hospice services. Patient does not wish for oxygen at this time. Patient continues to be inpatient
appropriate until safe placement can be found. Patient will be seen daily.
--- NOTE | 2024-12-18 13:45 | W.PN.HOSP.TC ---
Today's Communication/Plan
-
Ongoing dispo efforts to inpt hospice in a facility
Assessment / Plan
Assessment / Plan
#End stage chronic hypoxic respiratory failure with severe COPD/ continued tobacco use
patient current everyday smoke with documented hypoxia and tachypnea with home hospice visits
on 2L NC in ED to maintain SpO2 >93%
c/w comfort care measures.
- consulted case management/ hospice -following
Oxygen for comfort
- continue Advair, albuterol neb, azithromycin, ipratropium bromide neb, morphine ATC,
Finished prednisone
- added PRN IV morphine
#Stage IV metastatic lung cancer
Patient had decided to pursue palliative care/hospice. She was made aware of lung mass and highly suspicious for lung cancer and could be treatable but she made her decision to pursue comfort care and declined biopsy or further treatments. She is
currently on home hospice care
#Essential hypertension
- continue amlodipine and metoprolol
#anxiety
- continue alprazolam but decreased frequency
- added IV lorazepam PRN agitation.
#Nicotine dependence
patient continues to smoke 0.5-1 pack per day
- on nicotine Patch
Code Status: DNR
DVT Prophylaxis: n/a
cw In patient level of hospice
KAL RN
CM eval dispo home on hospice with caregivers vs inpatient hospice.
Anticipated Discharge: Within 24 hours
Subjective/Interval History
-
Date of Service: December 18, 2024
Patient is alert but she thought she was at home!
Denies SOB or CP.
KAL RN - she is confused but no agitation. Eating small amounts. Not needing prn IV pain meds .
Objective Data
-
Vital Signs:
Vital Signs
Temp Pulse Resp BP Pulse Ox
98.9 F 69 16 131/44 96
12/18/24 07:24 12/18/24 08:47 12/18/24 08:00 12/18/24 08:47 12/18/24 13:28
I&O
12/17/24 12/18/24 12/19/24
06:59 06:59 06:59
Intake Total 590 / 590 300 / 300
Balance 590 / 590 300 / 300
Physical Exam
-
General: Comfortable
Respiratory: Non Labored Respirations; Negative Accessory Resp Muscle Use
GI: Soft
Neuro: Awake and Alert; Negative Oriented
Psych: Calm and Confused
[2024-12-18] MEDS: ZOLOFT PO (17:18)
[2024-12-18 18:58] VITALS: BP 131/54
[2024-12-18] MEDS: TYLENOL 650 MG PO (22:47)
[2024-12-19] MEDS: MORPHINE SULFATE 2 MG IV ×4 (00:05→16:13)
--- NOTE | 2024-12-19 02:10 | DOWNTIME ---
There was a [employer] Downtime on 12/19/2024 from 0100 to 12/19/2023 at 0205 . Downtime documentation of patient's care, including medication administrations, has been reconciled in the electronic record per guidelines. Refer to the
patient's paper chart under the miscellaneous tab to see printed paper medication records and downtime forms.
[2024-12-19 07:25] VITALS: BP 132/55
[2024-12-19] MEDS: ADVAIR HFA 115/21 MCG INHALER 2 PUFF INH ×2 (08:20→19:59)
[2024-12-19] MEDS: NORVASC 10 MG PO (08:39)
[2024-12-19] MEDS: ZITHROMAX 250 MG PO (08:39)
[2024-12-19] MEDS: XANAX 0.5 MG PO ×2 (08:39→20:19)
[2024-12-19] MEDS: ASPIR LOW (ENTERIC COATED) 81 MG PO (08:39)
[2024-12-19] MEDS: DESENEX/MITRAZOL/ZEASORB 1 APPLIC TOPICAL ×2 (08:40→20:18)
[2024-12-19] MEDS: LOPRESSOR 50 MG PO ×2 (08:40→20:18)
[2024-12-19] MEDS: NICODERM TRANSDERMAL 21 MG TRANSDERM (08:40)
--- NOTE | 2024-12-19 11:54 | W.PN.HOSP.TC ---
Today's Communication/Plan
-
Continue with hospice level of care
Assessment / Plan
Assessment / Plan
#End stage chronic hypoxic respiratory failure with severe COPD/ continued tobacco use
patient current everyday smoke with documented hypoxia and tachypnea with home hospice visits
on 2L NC in ED to maintain SpO2 >93%
c/w comfort care measures.
- consulted case management/ hospice -following
Oxygen for comfort
- continue Advair, albuterol neb, azithromycin, ipratropium bromide neb, morphine ATC,
Finished prednisone
- added PRN IV morphine
#Stage IV metastatic lung cancer
Patient had decided to pursue palliative care/hospice. She was made aware of lung mass and highly suspicious for lung cancer and could be treatable but she made her decision to pursue comfort care and declined biopsy or further treatments. She is
currently on home hospice care
#Essential hypertension
- continue amlodipine and metoprolol
#anxiety
- continue alprazolam but decreased frequency
- added IV lorazepam PRN agitation.
#Nicotine dependence
patient continues to smoke 0.5-1 pack per day
- on nicotine Patch
Code Status: DNR
DVT Prophylaxis: n/a
cw In patient level of hospice
DW RN
CM eval dispo home on hospice with caregivers vs inpatient hospice.
Anticipated Discharge: Within 24 hours
Subjective/Interval History
-
Date of Service: December 19, 2024
Today she is complaining of chest pain and also shortness of breath. She looks uncomfortable.
Objective Data
-
Vital Signs:
Vital Signs
Temp Pulse Resp BP Pulse Ox
98.4 F 80 24 132/55 95
12/19/24 07:25 12/19/24 08:25 12/19/24 08:25 12/19/24 07:25 12/19/24 08:25
I&O
12/18/24 12/19/24 12/20/24
06:59 06:59 06:59
Intake Total 300 / 300 120 / 120
Balance 300 / 300 120 / 120
Review of Systems
-
Respiratory: Reports Trouble Breathing
Cardiac: Reports Chest Pain
Abdomen/GI: Denies Nausea or Vomiting
Physical Exam
-
General: Negative Comfortable
Respiratory: Non Labored Respirations; Negative Accessory Resp Muscle Use
Neuro: Awake and Alert
--- NOTE | 2024-12-19 13:58 | HOSPNOTE ---
Trying to get patient to [facility] but patient is not able to sign paperwork so the plan is kalyan is coming at 7pm this evening and the paperwork is left in the room for grandjanet to sign since he is the patient premium representative. I spoke with danelle
RN and made her aware of the paperwork. Hospice will continue to follow daily.
[2024-12-19] MEDS: ATIVAN 1 MG IV ×2 (16:39→23:02)
[2024-12-19] MEDS: NSS (PRESERVATIVE FREE) 0.5 ML IV ×2 (16:39→23:00)
[2024-12-19] MEDS: ZOLOFT 50 MG PO (16:40)
[2024-12-19 19:15] VITALS: BP 141/58
[2024-12-19 23:05] VITALS: BP 134/55
[2024-12-20] MEDS: MORPHINE SULFATE 2 MG IV ×7 (00:03→23:47)
--- NOTE | 2024-12-20 01:00 | PTCARENOTE ---
blood transfusion completed. vss. no reaction noted.
[2024-12-20] MEDS: ADVAIR HFA 115/21 MCG INHALER INH (07:30)
[2024-12-20 07:41] VITALS: BP 129/55
[2024-12-20] MEDS: NORVASC 10 MG PO (08:29)
[2024-12-20] MEDS: ZITHROMAX 250 MG PO (08:29)
[2024-12-20] MEDS: ASPIR LOW (ENTERIC COATED) 81 MG PO (08:29)
[2024-12-20] MEDS: LOPRESSOR 50 MG PO (08:32)
[2024-12-20] MEDS: XANAX 0.5 MG PO (08:32)
[2024-12-20] MEDS: NICODERM TRANSDERMAL 21 MG TRANSDERM (08:32)
[2024-12-20] MEDS: DESENEX/MITRAZOL/ZEASORB 1 APPLIC TOPICAL ×2 (08:37→19:51)
--- NOTE | 2024-12-20 10:18 | W.PN.HOSP.TC ---
Today's Communication/Plan
-
DC
Assessment / Plan
Assessment / Plan
#End stage chronic hypoxic respiratory failure with severe COPD/ continued tobacco use
patient current everyday smoke with documented hypoxia and tachypnea with home hospice visits
on 2L NC in ED to maintain SpO2 >93%
c/w comfort care measures.
- consulted case management/ hospice -following
Oxygen for comfort
- continue Advair, albuterol neb, azithromycin, ipratropium bromide neb, morphine ATC,
Finished prednisone
- added PRN IV morphine
#Stage IV metastatic lung cancer
Patient had decided to pursue palliative care/hospice. She was made aware of lung mass and highly suspicious for lung cancer and could be treatable but she made her decision to pursue comfort care and declined biopsy or further treatments. She is
currently on home hospice care
#Essential hypertension
- continue amlodipine and metoprolol
#anxiety
- continue alprazolam but decreased frequency
- added IV lorazepam PRN agitation.
#Nicotine dependence
patient continues to smoke 0.5-1 pack per day
- on nicotine Patch
Code Status: DNR
DVT Prophylaxis: n/a
cw In patient level of hospice
DW RN
hospice team yesterday - pt now has a place at [facility] for inpatient rehab.
Will dc today on hospice to the facility
Total time of DC 32 min
Anticipated Discharge: Today
Subjective/Interval History
-
Date of Service: December 20, 2024
Pt is comfortable.
Breathing and chest pain is ok.
Discussed with RN - pt has been comfortable today.
Objective Data
-
Vital Signs:
Vital Signs
Temp Pulse Resp BP Pulse Ox
99.3 F 71 20 129/55 97
12/20/24 07:41 12/20/24 08:32 12/20/24 07:41 12/20/24 08:32 12/20/24 07:41
I&O
12/19/24 12/20/24 12/21/24
06:59 06:59 06:59
Intake Total 120 / 120 720 / 720
Balance 120 / 120 720 / 720
Physical Exam
-
General: Comfortable
Respiratory: Negative Non Labored Respirations or Accessory Resp Muscle Use
Neuro: Awake and Alert
--- NOTE | 2024-12-20 12:19 | HOSPNOTE ---
Paperwork was left for grandson so sign so we are able to seek placement at [facility]. The paperwork is needed so the facility to access financials and the patient can apply for Medicaid which [facility] will accept. The grandson will not
return any calls and the grandson took the paperwork with him. I reached out to [facility] and spoke with Dena who is trying to get the documents or assist with caregiving set up in the home. Patient continues to be lethargic at
times but is able to answer questions. We are trying to seek placement. Patient will be seen daily by hospice.
[2024-12-20] MEDS: ZOLOFT PO (18:05)
[2024-12-20 19:06] VITALS: BP 132/57
[2024-12-20] MEDS: XANAX PO (19:51)
[2024-12-20] MEDS: LOPRESSOR PO (19:53)
[2024-12-20] MEDS: ADVAIR HFA 115/21 MCG INHALER 2 PUFF INH (20:24)
[2024-12-21 07:13] VITALS: BP 138/64
[2024-12-21] MEDS: ADVAIR HFA 115/21 MCG INHALER 2 PUFF INH ×2 (07:20→20:01)
[2024-12-21] MEDS: MORPHINE SULFATE 2 MG IV ×5 (08:03→23:23)
[2024-12-21] MEDS: NICODERM TRANSDERMAL 21 MG TRANSDERM (08:03)
[2024-12-21] MEDS: LOPRESSOR 50 MG PO ×2 (08:06→20:16)
[2024-12-21] MEDS: DESENEX/MITRAZOL/ZEASORB 1 APPLIC TOPICAL ×2 (08:06→20:22)
[2024-12-21] MEDS: ZITHROMAX 250 MG PO (08:06)
[2024-12-21] MEDS: NORVASC 10 MG PO (08:06)
[2024-12-21] MEDS: XANAX 0.5 MG PO ×2 (08:06→20:16)
[2024-12-21] MEDS: ASPIR LOW (ENTERIC COATED) 81 MG PO (08:06)
--- NOTE | 2024-12-21 14:18 | W.PN.HOSP.TC ---
Today's Communication/Plan
-
CW Hospice level of care
Assessment / Plan
Assessment / Plan
#End stage chronic hypoxic respiratory failure with severe COPD/ continued tobacco use
patient current everyday smoke with documented hypoxia and tachypnea with home hospice visits
on 2L NC in ED to maintain SpO2 >93%
c/w comfort care measures.
- consulted case management/ hospice -following
Oxygen for comfort
- continue Advair, albuterol neb, azithromycin, ipratropium bromide neb, morphine ATC,
Finished prednisone
- added PRN IV morphine
#Stage IV metastatic lung cancer
Patient had decided to pursue palliative care/hospice. She was made aware of lung mass and highly suspicious for lung cancer and could be treatable but she made her decision to pursue comfort care and declined biopsy or further treatments. She is
currently on home hospice care
#Essential hypertension
- continue amlodipine and metoprolol
#anxiety
- continue alprazolam but decreased frequency
- added IV lorazepam PRN agitation.
#Nicotine dependence
patient continues to smoke 0.5-1 pack per day
- on nicotine Patch
Code Status: DNR
DVT Prophylaxis: n/a
cw In patient level of hospice
KAL RN
KAL CM 12/20 - pt now has a place at [facility] for inpatient rehab but paper work is not completed by family yet.
Will dc on hospice to the facility when paper work is complete and all.
Anticipated Discharge: Within 24 hours
Subjective/Interval History
-
Date of Service: December 21, 2024
Patient is sleeping comfortably. Did not disturb. Checked with RN-patient is comfortable.
Objective Data
-
Vital Signs:
Vital Signs
Temp Pulse Resp BP Pulse Ox
98.3 F 88 20 138/64 95
12/21/24 07:13 12/21/24 08:06 12/21/24 07:22 12/21/24 08:06 12/21/24 09:28
I&O
12/20/24 12/21/24 12/22/24
06:59 06:59 06:59
Intake Total 720 / 720 210 / 210
Balance 720 / 720 210 / 210
Physical Exam
-
General: Comfortable
Respiratory: Non Labored Respirations; Negative Accessory Resp Muscle Use
--- NOTE | 2024-12-21 17:00 | HOSPNOTE ---
Patients grandson Isidro stated to Dena with [employer] that the plan is for the patient to go home on Tuesday with the other grandson Jerson will be her primary caregiver. Hospice called Jerson to verify this information. Jerson states that he is not okay with
providing care for patient in the home. He stated that he would like for her to be placed at the SNF in [place]. Reviewed with Jerson that this would be [facility]. Explained to Jerson that Isidro was given the paperwork and financial release for
[facility] to evaluate for patient to be accepted. Jerson states that he will advise his brother Isidro to get those documents to [facility]. We also reviewed with Jerson that the hospital is ready for patient to be discharge and that this needs to
take priority. Jerson verbalized understanding and states that he will notify his brother Isidro of our conversation. Patient remains GIP appropriate due to not being able to go home due to unsafe environment and conditions and noone able to care for
patient. Patient is lethargic today and has needed 2 IVP PRN doses of Morphine today for dyspnea. Hospice will visit daily and work closely with Dena at [facility] and grandsons Jerson and Isidro to expedite information being given to [facility] for review.
Dena with [employer] is updated. Hospice ENROLLMENT CLERK is also involved in assisting with this case as well.
[2024-12-21] MEDS: ZOLOFT PO (17:03)
[2024-12-21 20:26] VITALS: BP 116/52
[2024-12-22] MEDS: MORPHINE SULFATE 2 MG IV ×7 (04:20→23:21)
[2024-12-22] MEDS: ADVAIR HFA 115/21 MCG INHALER 2 PUFF INH ×2 (07:51→20:02)
[2024-12-22 08:11] VITALS: BP 124/54
[2024-12-22] MEDS: LOPRESSOR 50 MG PO ×2 (08:19→19:28)
[2024-12-22] MEDS: NORVASC 10 MG PO (08:19)
[2024-12-22] MEDS: XANAX 0.5 MG PO ×2 (08:19→19:28)
[2024-12-22] MEDS: ASPIR LOW (ENTERIC COATED) 81 MG PO (08:19)
[2024-12-22] MEDS: NICODERM TRANSDERMAL 21 MG TRANSDERM (08:20)
[2024-12-22] MEDS: ZITHROMAX 250 MG PO (08:20)
[2024-12-22] MEDS: DESENEX/MITRAZOL/ZEASORB 1 APPLIC TOPICAL ×2 (08:20→19:31)
--- NOTE | 2024-12-22 10:08 | HOSPNOTE ---
Patient remains GIP due to an unsafe living environment at home and as she awaits placement to s SNF. During visit patient resting quietly after receiving scheduled Morphine, FLACC-0. Spoke with staff no new concerns noted. Discharge planning
continues.
--- NOTE | 2024-12-22 12:42 | W.PN.HOSP.TC ---
Today's Communication/Plan
-
cw hospice care
Assessment / Plan
Assessment / Plan
#End stage chronic hypoxic respiratory failure with severe COPD/ continued tobacco use
patient current everyday smoke with documented hypoxia and tachypnea with home hospice visits
on 2L NC in ED to maintain SpO2 >93%
c/w comfort care measures.
- consulted case management/ hospice -following
Oxygen for comfort
- continue Advair, albuterol neb, azithromycin, ipratropium bromide neb, morphine ATC,
Finished prednisone
- added PRN IV morphine
#Stage IV metastatic lung cancer
Patient had decided to pursue palliative care/hospice. She was made aware of lung mass and highly suspicious for lung cancer and could be treatable but she made her decision to pursue comfort care and declined biopsy or further treatments. She is
currently on home hospice care
#Essential hypertension
- continue amlodipine and metoprolol
#anxiety
- continue alprazolam but decreased frequency
- added IV lorazepam PRN agitation.
#Nicotine dependence
patient continues to smoke 0.5-1 pack per day
- on nicotine Patch
Code Status: DNR
DVT Prophylaxis: n/a
cw In patient level of hospice
KAL RN
DW CM 12/20 - pt now has a place at [facility] for inpatient rehab but paper work is not completed by family yet.
Will dc on hospice to the facility when paper work is complete and all.
Anticipated Discharge: > 48 hours
Subjective/Interval History
-
Date of Service: December 22, 2024
According to RN she was complaining of chest pain and shortness of breath so got as needed IV morphine. Now comfortable.
Objective Data
-
Vital Signs:
Vital Signs
Temp Pulse Resp BP Pulse Ox
98.8 F 81 22 124/54 95
12/22/24 08:11 12/22/24 08:19 12/22/24 08:11 12/22/24 08:19 12/22/24 08:58
I&O
12/21/24 12/22/24 12/23/24
06:59 06:59 06:59
Intake Total 210 / 210 100 / 100 50 / 50
Output Total 0 / 0
Balance 210 / 210 100 / 100 50 / 50
Physical Exam
-
General: Comfortable
Respiratory: Non Labored Respirations; Negative Accessory Resp Muscle Use
Neuro: Awake and Alert
Psych: Calm
--- NOTE | 2024-12-22 16:40 | CHAP ---
Visited Georgette at 2:35. She was very lethargic, minimally responsive. She mentioned stomach pain, which photo technician reported to nursing and Hospice CM. Georgette welcomed prayer. Emotional and spiritual support provided.
[2024-12-22] MEDS: ZOLOFT 50 MG PO (17:38)
[2024-12-22 19:30] VITALS: BP 137/60
[2024-12-23 07:15] VITALS: BP 125/63
[2024-12-23] MEDS: ADVAIR HFA 115/21 MCG INHALER 2 PUFF INH ×2 (08:26→18:00)
[2024-12-23] MEDS: LOPRESSOR 50 MG PO ×2 (08:35→20:08)
[2024-12-23] MEDS: ZITHROMAX 250 MG PO (08:35)
[2024-12-23] MEDS: ASPIR LOW (ENTERIC COATED) 81 MG PO (08:35)
[2024-12-23] MEDS: NICODERM TRANSDERMAL 21 MG TRANSDERM (08:35)
[2024-12-23] MEDS: NORVASC 10 MG PO (08:36)
[2024-12-23] MEDS: MORPHINE SULFATE 2 MG IV ×3 (08:38→17:36)
[2024-12-23] MEDS: XANAX 0.5 MG PO ×2 (08:38→20:08)
[2024-12-23] MEDS: DESENEX/MITRAZOL/ZEASORB 1 APPLIC TOPICAL ×2 (08:40→20:09)
--- NOTE | 2024-12-23 09:11 | W.PN.HOSP.TC ---
Today's Communication/Plan
-
Continue with hospital level of care
Assessment / Plan
Assessment / Plan
#End stage chronic hypoxic respiratory failure with severe COPD/ continued tobacco use
patient current everyday smoke with documented hypoxia and tachypnea with home hospice visits
on 2L NC in ED to maintain SpO2 >93%
c/w comfort care measures.
- consulted case management/ hospice -following
Oxygen for comfort
- continue Advair, albuterol neb, azithromycin, ipratropium bromide neb, morphine ATC,
Finished prednisone
- added PRN IV morphine
#Stage IV metastatic lung cancer
Patient had decided to pursue palliative care/hospice. She was made aware of lung mass and highly suspicious for lung cancer and could be treatable but she made her decision to pursue comfort care and declined biopsy or further treatments. She is
currently on home hospice care
#Essential hypertension
- continue amlodipine and metoprolol
#anxiety
- continue alprazolam but decreased frequency
- added IV lorazepam PRN agitation.
#Nicotine dependence
patient continues to smoke 0.5-1 pack per day
- on nicotine Patch
Code Status: DNR
DVT Prophylaxis: n/a
cw In patient level of hospice
DW RN
DW CM 12/20 - pt now has a place at [facility] for inpatient rehab but paper work is not completed by family yet.
Will dc on hospice to the facility when paper work is complete and all.
Anticipated Discharge: Within 24 hours
Subjective/Interval History
-
Date of Service: December 23, 2024
History she needed more IV morphine for breakthrough pain and shortness of breath.
This morning she is but lethargic.
Objective Data
-
Vital Signs:
Vital Signs
Temp Pulse Resp BP Pulse Ox
98.8 F 84 20 125/63 91
12/23/24 07:15 12/23/24 08:35 12/23/24 08:29 12/23/24 08:35 12/23/24 08:59
I&O
12/22/24 12/23/24 12/24/24
06:59 06:59 06:59
Intake Total 100 / 100 250 / 250
Output Total 0 / 0
Balance 100 / 100 250 / 250
Physical Exam
-
General: Comfortable
Respiratory: Non Labored Respirations; Negative Accessory Resp Muscle Use
Neuro: Negative Awake or Alert
Psych: Calm
--- NOTE | 2024-12-23 10:49 | HOSPNOTE ---
Patient remains GIP while awaiting transfer to a SNF. Patient sleeping during visit on Oxygen 3 L via nasal cannula, respirations non labored. Attempted to call patients kalyan Tinoco to provide and update no answer, left a message with a request
for a return call.
[2024-12-23] MEDS: HALDOL CONCENTRATE 1 MG SL (12:32)
--- NOTE | 2024-12-23 12:38 | PTCARENOTE ---
PRN dose of morphine IV and Haldol PO given at 1232; patient was restless and verbalized that she was having pain.
[2024-12-23] MEDS: ZOLOFT PO ×2 (17:34→17:47)
[2024-12-23 19:13] VITALS: BP 113/47
[2024-12-23 20:08] VITALS: BP 126/56
[2024-12-24] MEDS: MORPHINE SULFATE 2 MG IV ×9 (02:21→23:33)
[2024-12-24] MEDS: HALDOL CONCENTRATE 1 MG SL ×2 (02:45→12:38)
[2024-12-24 07:05] VITALS: BP 121/52
[2024-12-24] MEDS: ADVAIR HFA 115/21 MCG INHALER 2 PUFF INH (07:35)
[2024-12-24] MEDS: LOPRESSOR 50 MG PO (09:24)
[2024-12-24] MEDS: XANAX 0.5 MG PO (09:24)
[2024-12-24] MEDS: ASPIR LOW (ENTERIC COATED) 81 MG PO (09:24)
[2024-12-24] MEDS: ZITHROMAX 250 MG PO (09:24)
[2024-12-24] MEDS: NICODERM TRANSDERMAL 21 MG TRANSDERM (09:29)
[2024-12-24] MEDS: DESENEX/MITRAZOL/ZEASORB 1 APPLIC TOPICAL ×2 (09:29→22:45)
[2024-12-24] MEDS: NORVASC 10 MG PO (09:30)
[2024-12-24 09:34] VITALS: BP 112/53
--- NOTE | 2024-12-24 12:48 | W.PN.HOSP.TC ---
Today's Communication/Plan
-
Discharge when set up
Assessment / Plan
Assessment / Plan
On examination patient is cachectic
Cardiovascular system S1-S2 appreciated
Chest clear to auscultation
#End stage chronic hypoxic respiratory failure with severe COPD/ continued tobacco use
patient current everyday smoke with documented hypoxia and tachypnea with home hospice visits
on 2L NC in ED to maintain SpO2 >93%
c/w comfort care measures.
- consulted case management/ hospice -following
Oxygen for comfort
- continue Advair, albuterol neb, azithromycin, ipratropium bromide neb, morphine ATC,
Finished prednisone
- added PRN IV morphine
#Stage IV metastatic lung cancer
Patient had decided to pursue palliative care/hospice. She was made aware of lung mass and highly suspicious for lung cancer and could be treatable but she made her decision to pursue comfort care and declined biopsy or further treatments. She is
currently on home hospice care
#Essential hypertension
- continue amlodipine and metoprolol
#anxiety
- Continue alprazolam but decreased frequency
- Added IV lorazepam PRN agitation.
#Nicotine dependence
Patient continues to smoke 0.5-1 pack per day
- on nicotine Patch
Code Status: DNR
DVT Prophylaxis: n/a
cw In patient level of hospice
DW RN
DW CM 12/20 - pt now has a place at [facility] for inpatient rehab but paper work is not completed by family yet.
Will dc on hospice to the facility when paper work is complete and all.
Anticipated Discharge: Within 24 hours
Subjective/Interval History
-
Date of Service: December 24, 2024
Objective Data
-
Vital Signs:
Vital Signs
Temp Pulse Resp BP Pulse Ox
97.1 F 77 20 112/53 91
12/24/24 07:05 12/24/24 09:30 12/24/24 08:07 12/24/24 09:34 12/24/24 08:07
I&O
12/23/24 12/24/24 12/25/24
06:59 06:59 06:59
Intake Total 250 / 250 220 / 460 240 / 240
Balance 250 / 250 220 / 460 240 / 240
--- NOTE | 2024-12-24 13:14 | HOSPNOTE ---
SN met up with Facility SN Kell, stated patient had just received PRN haldol and Morphine prior to SN visit. Per kell patient appetite is minimal. SN assisted Kell with repositioning of patient. Patient minimally responsive to SN verbalization and
gentle touch. Patient opens eyes briefly and nods head yes or no to assessment questions. Patient lungs CTA, labored breathing noted, pox 92% on o2 via NC. SN assisted patient with eating some lunch, patient ate one green-wu did not chew up small
piece of burger. Patient ate about 25% of jello. Emotional support provided. Coordinated with Kell, no concerns at this time. Reinforced to call office with any questions or concerns expresses understanding. Update to grandson after visit. Patient
remains inpatient for management of pain and anxiety. Discharge planning continues.
[2024-12-24] MEDS: ATIVAN 1 MG IV ×3 (17:31→22:31)
[2024-12-24] MEDS: NSS (PRESERVATIVE FREE) 0.5 ML IV ×2 (17:34→20:24)
[2024-12-24] MEDS: MIRALAX 17 GRAMS PO (17:37)
[2024-12-24 19:22] VITALS: BP 116/66
[2024-12-24] MEDS: ADVAIR HFA 115/21 MCG INHALER INH (20:37)
[2024-12-24] MEDS: ZOLOFT PO (20:37)
[2024-12-24] MEDS: LOPRESSOR PO (20:39)
[2024-12-24] MEDS: XANAX PO (20:39)
[2024-12-25] MEDS: MORPHINE SULFATE 2 MG IV ×10 (00:36→21:46)
[2024-12-25] MEDS: NSS (PRESERVATIVE FREE) 0.5 ML IV ×6 (00:37→21:45)
[2024-12-25] MEDS: ATIVAN 1 MG IV ×6 (00:37→21:45)
--- NOTE | 2024-12-25 02:14 | PTCARENOTE ---
Pt on comfort measures as per orders, nonverbal and nonresponsive this shift, unable to take any po meds, labored breathing, RR 40's, O2 on at 5L, HOB kept elevated. Morphine and Ativan PRN given (see JAN) with not any + effect. yardage caller WONG Huizar
T. made aware of the above, at bedside to assess pt, no new orders at this time.
[2024-12-25] MEDS: ADVAIR HFA 115/21 MCG INHALER INH (07:11)
[2024-12-25 07:15] VITALS: BP 125/65
[2024-12-25] MEDS: ASPIR LOW (ENTERIC COATED) PO (08:18)
[2024-12-25] MEDS: MIRALAX PO (08:18)
[2024-12-25] MEDS: LOPRESSOR PO ×2 (08:18→21:13)
[2024-12-25] MEDS: XANAX PO ×2 (08:19→21:14)
[2024-12-25] MEDS: NORVASC PO (08:19)
[2024-12-25] MEDS: ZITHROMAX PO (08:19)
[2024-12-25] MEDS: NICODERM TRANSDERMAL 21 MG TRANSDERM (08:20)
[2024-12-25] MEDS: DESENEX/MITRAZOL/ZEASORB 1 APPLIC TOPICAL ×2 (08:21→21:14)
--- NOTE | 2024-12-25 10:16 | W.PN.HOSP.TC ---
Addendum entered and electronically signed by Carroll Carter MD 12/25/24 11:10:
Called patient's grandson again. Updated about the change and that patient may not be able to leave the hospital and she may pass here on Hospice.
Original Note:
Today's Communication/Plan
-
Morphine infusion for symptoms
Assessment / Plan
Assessment / Plan
On examination patient is cachectic
Cardiovascular system S1-S2 appreciated
Chest clear to auscultation
Not arousable
Dyspneic
#End stage chronic hypoxic respiratory failure with severe COPD/ continued tobacco use
patient current everyday smoke with documented hypoxia and tachypnea with home hospice visits
on 2L NC in ED to maintain SpO2 >93%
c/w comfort care measures.
Continue Advair, albuterol neb, ipratropium bromide neb, morphine
Finished prednisone
- IV morphine she is uncomfortable , change to IV infusion.
#Stage IV metastatic lung cancer
Patient had decided to pursue palliative care/hospice. She was made aware of lung mass and highly suspicious for lung cancer and could be treatable but she made her decision to pursue comfort care and declined biopsy or further treatments. She is
currently on home hospice care
#Essential hypertension
- Stop amlodipine and metoprolol
#anxiety
- Continue IV lorazepam PRN agitation.
#Nicotine dependence
Patient continues to smoke 0.5-1 pack per day
- on nicotine Patch
Code Status: DNR
DVT Prophylaxis: n/a
cw In patient level of hospice
DW RN
Called Grandson. Went to . Left message
Anticipated Discharge: > 48 hours
Subjective/Interval History
-
Date of Service: December 25, 2024
Objective Data
-
Vital Signs:
Vital Signs
Temp Pulse Resp BP Pulse Ox
98.1 F 96 12 125/65 83
12/25/24 07:15 12/25/24 07:15 12/25/24 07:15 12/25/24 07:15 12/25/24 10:02
I&O
12/24/24 12/25/24 12/26/24
06:59 06:59 06:59
Intake Total 220 / 460 360 / 360
Balance 220 / 460 360 / 360
[2024-12-25] MEDS: MORPHINE 100 IV (11:23)
--- NOTE | 2024-12-25 11:58 | PTCARENOTE ---
Patient grimacing, moaning with care, tachypnea/dyspnea at rest, POX 83% on 5L NC. Patient medicated with PRN morphine and ativan - see JAN. Morphine gtt at step 1 ordered per MD and initiated by this RN, infusing at 1 mg/hr in L FA. Patient with no
urine output, bladder scan 472 ml, verbal order taken for loco for end of life care per MD. Loco inserted by this RN with Mack RN, patient tolerated insertion, clear yellow urine output in drainage bag.
--- NOTE | 2024-12-25 12:13 | HOSPNOTE ---
Patient was started on a morphine drip for increased respirations. Patient is unable to take in any PO nutrition due to lethargy. Patient appears to be transitioning to actively dying and family was called if they wish to visit. Patient continues to
be inpatient hospice appropriate for management of shortness of breath, pain and anxiety now requiring a morphine drip. Patient will be seen daily by hospice nurse.
[2024-12-25] MEDS: ZOLOFT PO (14:39)
[2024-12-26] MEDS: MORPHINE SULFATE 2 MG IV ×8 (01:32→13:39)
[2024-12-26] MEDS: ATIVAN 1 MG IV ×4 (01:34→13:40)
[2024-12-26] MEDS: NSS (PRESERVATIVE FREE) 0.5 ML IV ×3 (04:33→13:40)
[2024-12-26] MEDS: XANAX PO (07:37)
[2024-12-26] MEDS: LOPRESSOR PO (07:37)
[2024-12-26] MEDS: MIRALAX PO (07:37)
[2024-12-26] MEDS: NORVASC PO (07:37)
[2024-12-26] MEDS: ASPIR LOW (ENTERIC COATED) PO (07:37)
[2024-12-26] MEDS: DESENEX/MITRAZOL/ZEASORB 1 APPLIC TOPICAL (07:40)
[2024-12-26] MEDS: NICODERM TRANSDERMAL 21 MG TRANSDERM (07:40)
[2024-12-26 07:58] VITALS: BP 106/66
[2024-12-26] MEDS: TYLENOL/FEVERALL 650 MG RECTAL (08:28)
--- NOTE | 2024-12-26 10:09 | W.PN.HOSP.TC ---
Today's Communication/Plan
-
IV morphine
Assessment / Plan
Assessment / Plan
On examination patient is cachectic
Cardiovascular system S1-S2 appreciated
Chest clear to auscultation
Not arousable
Dyspneic
#End stage chronic hypoxic respiratory failure with severe COPD/ continued tobacco use
patient current everyday smoke with documented hypoxia and tachypnea with home hospice visits
c/w comfort care measures.
Continue albuterol neb, ipratropium bromide neb, morphine
Finished prednisone
IV morphine infusion.
she looks more SOB, may need step 2.
Nursing to follow protocol and go up.
#Stage IV metastatic lung cancer
Patient had decided to pursue palliative care/hospice. She was made aware of lung mass and highly suspicious for lung cancer and could be treatable but she made her decision to pursue comfort care and declined biopsy or further treatments.
#Essential hypertension
#anxiety- Continue IV lorazepam PRN agitation.
#Nicotine dependence
Patient continues to smoke 0.5-1 pack per day
on nicotine Patch
Code Status: DNR
DVT Prophylaxis: n/a
cw In patient level of hospice
DW RN
Spoke to grand son yesterday that pt may pass here
Anticipated Discharge: 24 - 48 hours
Subjective/Interval History
-
Date of Service: December 26, 2024
Objective Data
-
Vital Signs:
Vital Signs
Temp Pulse Resp BP Pulse Ox
103.7 F H 142 24 106/66 84
12/26/24 07:58 12/26/24 07:58 12/26/24 07:58 12/26/24 07:58 12/26/24 09:45
I&O
12/25/24 12/26/24 12/27/24
06:59 06:59 06:59
Intake Total 360 / 360 0 / 0
Output Total 575 / 575
Balance 360 / 360 -575 / -575
--- NOTE | 2024-12-26 13:04 | HOSPNOTE ---
Respirations are shallow and labored. Color is dusky.Patient is unresponsive. Minimal urine output. Morphine drip was increased to step 2 as per protocol. Patient was repositioned and personal care provided. Patients is imminent. Patient will
remain GIP due to needing continued Skilled assessments for titration of medication for optimal comfort.Contacted the patients grandson and updated him on the patients condition. No answer on phone. He does have the Hospice phone numbers to return
the call
[2024-12-26] MEDS: ROBINUL 0.2 MG IV (13:40)
--- NOTE | 2024-12-26 14:05 | PTCARENOTE ---
Patient on step 2 morphine gtt, administered PRN robinul, ativan, and morphine for nonverbal resp distress, excessive secretions, and anxiety/twitching. On reassessment of pain/resp distres, patient noted to be without spontaneous respirations, no
heart or lung sounds heard on auscultation by this RN. MD made aware to come to bedside, morphine gtt paused.
--- NOTE | 2024-12-26 14:42 | W.PN.DEATH ---
Pronouncement of
-
Called to see patient to pronounce.
No spontaneous heart tones or respirations noted.
Patient not responsive to verbal stimuli.
Patient is pronounced .
Time of : 14:05
Date of : 12/26/24
Cause of : Stage IV metastatic lung cancer
Family Notified: Yes (left a message for Grandson to call back)
--- NOTE | 2024-12-26 15:06 | W.PN.UPDATE ---
Addendum entered and electronically signed by Carroll Carter MD 12/27/24 08:32:
I was told hospital unit coordinator spoke to kalyan re passing yesterday
Addendum entered and electronically signed by Carroll Carter MD 12/27/24 08:22:
[id number]
Original Note:
Update Note
Progress Note Update
time spent 2 vitist and do summary 38 min
--- NOTE | 2024-12-26 17:04 | PTCARENOTE ---
Postmortem care provided to patient, [facility] notified by this RN. IV and loco removed, morphine gtt wasted in med room with Leandra DUKE. Dentures placed in patient's mouth, belongings at bedside placed in patient bag and labeled. This RN called
patient's grandson/contact in chart with no answer.
--- NOTE | 2024-12-27 08:18 | W.PN.UPDATE ---
Update Note
Progress Note Update
Called Karley again and left message this am
== END 2024-12-26 14:05 | disposition expired | DRG 951 ==
LOC: 2 NORTH 19:48
PROVIDERS: Physician Assistant; ADMITTING PHYSICIAN Internal Medicine; ATTENDING PHYSICIAN Hospitalist; EMERGENCY PHYSICIAN Student in an Organized Health Care Education/Training Program; FAMILY PHYSICIAN Physician Assistant Medical
DX: Z51.5 Encounter for palliative care (principal); C34.90 Malignant neoplasm of unspecified part of unspecified bronchus or lung; C79.31 Secondary malignant neoplasm of brain; R64 Cachexia; Z68.1 Body mass index [BMI] 19.9 or less, adult; J96.11 Chronic respiratory failure with hypoxia; E87.1 Hypo-osmolality and hyponatremia; N17.9 Acute kidney failure, unspecified; R53.1 Weakness; W18.39XA Other fall on same level, initial encounter; Y93.89 Activity, other specified; Y92.009 Unspecified place in unspecified non-institutional (private) residence as the place of occurrence of the external cause; J43.8 Other emphysema; F17.210 Nicotine dependence, cigarettes, uncomplicated; R53.83 Other fatigue; R23.3 Spontaneous ecchymoses; D64.9 Anemia, unspecified; F41.9 Anxiety disorder, unspecified; I10 Essential (primary) hypertension; R59.0 Localized enlarged lymph nodes; I71.43 Infrarenal abdominal aortic aneurysm, without rupture; D72.829 Elevated white blood cell count, unspecified; R29.6 Repeated falls; E78.00 Pure hypercholesterolemia, unspecified; Z66 Do not resuscitate; Z88.0 Allergy status to penicillin; Z88.8 Allergy status to other drugs, medicaments and biological substances; Z91.030 Bee allergy status; Z79.51 Long term (current) use of inhaled steroids; Z79.52 Long term (current) use of systemic steroids; Z79.82 Long term (current) use of aspirin; Z90.49 Acquired absence of other specified parts of digestive tract; Z91.81 History of falling
CPT/HCPCS: 70450; 71046; 80053; 84484; 85025; 93005; 94640; 96361; 96374; 99285